=== PATIENT | male | born 1970 | race African-American/Black ===

== ENCOUNTER 2017-12-22 13:16 | Inpatient (IN) | payer SELFPAY ==
[~2017-12-22 13:16] MED LIST: ISOVUE-370 76%-LOCM 1 ML ONE
[2017-12-22 13:50] LABS: Hemoglobin 12.9 g/dL (14.0-18.0); Mean Corpuscular HGB CONC 32.4 g/dL (32.0-36.0); Mean Corpuscular Hemoglobin 25.6 pg (27.0-31.0); Mean Corpuscular Volume 79.1 fL (78.0-98.0); Mean Platelet Volume 8.4 fL (7.4-10.4); Platelet Count 213 thou/uL (130-400); RBC Distribution Width 13.8 % (11.5-14.5); Red Blood Cell (RBC) Count 5.05 mill/uL (4.70-6.10); White Blood Cell (WBC) Count 8.1 thou/uL (4.8-10.8)
[2017-12-22] MEDS ORDERED: Acetaminophen 500 MG TAB ONE (14:04)
[2017-12-22] MEDS ORDERED: cefTRIAXone\\ROCEPHIN 1 GM VIAL ONE (14:04)
[2017-12-22 14:09] LABS: ALT (SGPT) 35 U/L (8-55); AST (SGOT) 25 U/L (5-34); Albumin 4.2 g/dL (3.5-5.0); Alkaline Phosphatase 110 U/L (40-150); Anion Gap 14 mmol/L (10-20); BUN (Urea Nitrogen) 12 mg/dL (8.9-20.6); Bilirubin, Total 0.7 mg/dL (0.2-1.2); Calc. Creatinine Clearance 0 mL/min (70-130); Calcium 9.1 mg/dL (7.8-10.44); Carbon Dioxide 27 mmol/L (22-29); Chloride 100 mmol/L (98-107); Estimated GFR-MDRD 62; Globulin 3.9 g/dL (2.4-3.5); Glucose 149 mg/dL (70-105); Potassium 3.7 mmol/L (3.5-5.1); Protein, Total 8.1 g/dL (6.0-8.3); Sodium 137 mmol/L (136-145)
[2017-12-22 14:19] LABS: INR-International Normal Ratio 1.1; PTT 28.9 SEC (22.9-36.1); Prothrombin Time 13.9 SEC (12.0-14.7)
[2017-12-22 14:23] LABS: Band 5 % (5-11); Eosinophils 1 % (0-10); Lymphocytes 7 % (21-51); MDiff Complete? YES; Monocytes 7 % (0-10); Neutrophil 80 % (42-75); PLT Morphology Comment Appears Adequate; Polychromasia SLIGHT = 2-3 cells (100X) (0-2/hpf)
[2017-12-22] MEDS ORDERED: Azithromycin 500 MG VIAL ONE (14:24)
[2017-12-22 14:43] LABS: CKMB 1.5 ng/mL (0-6.6); Troponin I 0.024 ng/mL (< 0.028)
[2017-12-22] MEDS ORDERED: Ibuprofen 800 MG TAB ONE (15:09)
--- NOTE | 2017-12-22 15:33 | RAD ---
PORTABLE AP CHEST X-RAY 12/22/17 HISTORY: Shortness of breath. COMPARISON: 01/18/17. FINDINGS: Dual lead left subclavian cardiac pacemaking device remains in place. Cardiac silhouette is magnified by projection but does appear enlarged. Pulmonary vasculature is magnified by projection. There is s uboptimal evaluation left lung base due to portable technique and overlying soft tissue density as we ll as mild enlargement of the cardiac silhouette. Atelectasis versus infiltrate left lung base could not be entirely excluded. Lungs are otherwise clear. IMPRESSION: 1. Suboptimal evaluation left lung base, but there is otherwise no acute cardiopulmonary process. 2. Mild cardiomegaly. POS: [facility]
--- NOTE | 2017-12-22 15:59 | CT ---
CT ANGIOGRAM THORAX WITH IV CONTRAST AND 3D RECONSTRUCTIONS: 12/22/2017 HISTORY: Shortness of breath. Cough for three months. COMPARISON: 05/10/2016 FINDINGS: No filling defects are seen in the central or segmental pulmonary arteries to suggest a pulmonary emb olus. Subsegmental pulmonary arteries are less well opacified but are probably within normal limits as well. The thoracic aorta is normal in caliber without evidence of an aortic dissection. Minimal atheroscle rotic plaque is seen in the distal thoracic aorta. There are ground glass opacities seen within the left lower lobe and, to a lesser extent, at the late ral aspect of the left upper lobe, which may be related to an infectious process. The right lung is clear. There is no pleural effusion present. Nonspecific, nonenlarged mediastinal and hilar lymph nodes are seen. The upper abdomen demonstrates diminished attenuation of the liver, suggesting fatty infiltration. A dual-lead left subclavian cardiac pacemaker device is noted in place. IMPRESSION: 1. Ground glass opacities left upper and lower lobes, overall nonspecific. Given asymmetry and appe arance, findings may be related to an infectious process. 2. No CT evidence of a pulmonary embolus. 3. Fatty infiltration of the liver. POS: [facility]
--- NOTE | 2017-12-22 16:40 | PDOC.FM ---
- Subjective Subjective: This is a 47 yo male with a PMH of previous NV, Pacemaker in 2014, HTN, HLD, PE - Objective MAR Reviewed: Yes Result Diagrams: 12/22/17 13:37 12/22/17 13:37
[2017-12-22 17:57] LABS: Troponin I 0.034 ng/mL (< 0.028)
[2017-12-22] MEDS ORDERED: Ondansetron ODT 4 MG TAB SL PRN (18:08)
[2017-12-22] MEDS ORDERED: Ondansetron HCl/PF 4 MG/2 ML Vial IVP PRN (18:08)
[2017-12-22] MEDS ORDERED: Acetaminophen 325 MG TAB PO PRN (18:12)
[2017-12-22] MEDS ORDERED: Ondansetron ODT 4 MG TAB PO PRN (18:17)
--- NOTE | 2017-12-22 19:08 | PDOC.FPRHP ---
- History of Present Illness Chief Complaint: SOB History of Present Illness: This is a 47 yo AA M with a PMH of CA, PE, HTN, HLD, sleep apnea, heart failure , and poor compliance who presents to the ER with a CC of worsening SOB. He states that he has had a cough for about a month and has had gradual increase in SOB during that month. He state that in the last week he fell off his horse and states that he was sore after that. After his fall he started having increased SOB with a productive cough. He also states that he started having chest pain during this week. HE denies nausea, vomiting, or diarrhea. ED Course: Pt. received albuterol, rocephin, and azithromycin in the ED - Allergies/Adverse Reactions Allergies Allergy/AdvReac Type Severity Reaction Status Date / Time No Known Allergies Allergy Verified 12/22/17 20:08 - Home Medications Medication Instructions Recorded Confirmed Type No Known [No Known] 12/22/17 12/22/17 History - History PMHx:CA, HTN, HLD, Sleep apnea, heart failur, PSHx: pacemaker in 2013 FHx: Social: - Review of Systems General: reports: fever/chills. denies: weight/appetite/sleep changes Eyes: denies: eye pain, vision changes ENT: denies: nasal congestion, rhinorrhea Respiratory: reports: cough, shortness of breath Cardiovascular: reports: chest pain (with breating), edema (1+ pitting edema to midcalf). denies: palpitation Gastrointestinal: denies: nausea, vomiting, diarrhea, constipation Genitourinary: denies: incontinence, dysuria Skin: denies: rashes, lesions Musculoskeletal: reports: pain, stiffness Neurological: denies: numbness, weakness Psychological: denies: anxiety, depression - Vital signs BP: [174/101] HR: [113] RR: [28] Tmax: [103.0] Pox: [91]% on [RA] Wt: [144.24 Kg] - Physical Exam Constitutional: NAD, awake, alert and oriented, well developed -Constitutional: Pt. was sitting up watching tv, asked about when he could eat HEENT: normocephalic and atraumatic, PERRLA, EOMI Neck: supple, FROM, trachea midline Chest: no-tender to palpation, no lesions Heart: RRR, normal S1/S2 -Lungs: Pt. has end expiratory wheezing diffusely. Pt. had crackles at bases Abdomen: soft, non-tender Musculoskeletal: normal structure, ROM grossly normal Neurological: CN II-XII intact, normal sensation Skin: no rash/lesions, good turgor Heme/Lymphatic: no unusual bruising or bleeding Psychiatric: normal mood and affect, good judgment and insight, intact recent and remote memory FMR H&P: Results - Labs Result Diagrams: 12/22/17 13:37 12/22/17 13:37 Lab results: WBC 8.1 thou/uL (4.8-10.8) 12/22/17 13:37 Hgb 12.9 g/dL (14.0-18.0) L 12/22/17 13:37 Hct 39.9 % (42.0-52.0) L 12/22/17 13:37 MCV 79.1 fL (78.0-98.0) 12/22/17 13:37 Plt Count 213 thou/uL (130-400) 12/22/17 13:37 Band Neuts % (Manual) 5 % (5-11) 12/22/17 13:37 Sodium 137 mmol/L (136-145) 12/22/17 13:37 Potassium 3.7 mmol/L (3.5-5.1) 12/22/17 13:37 Chloride 100 mmol/L (98-107) 12/22/17 13:37 Carbon Dioxide 27 mmol/L (22-29) 12/22/17 13:37 BUN 12 mg/dL (8.9-20.6) 12/22/17 13:37 Creatinine 1.47 mg/dL (0.6-1.3) H 12/22/17 13:37 Glucose 149 mg/dL (70-105) H 12/22/17 13:37 Lactic Acid 2.0 mmol/L (0.5-2.2) 12/22/17 13:37 Calcium 9.1 mg/dL (7.8-10.44) 12/22/17 13:37 Total Bilirubin 0.7 mg/dL (0.2-1.2) 12/22/17 13:37 AST 25 U/L (5-34) 12/22/17 13:37 ALT 35 U/L (8-55) 12/22/17 13:37 Alkaline Phosphatase 110 U/L (40-150) 12/22/17 13:37 CK-MB (CK-2) 1.5 ng/mL (0-6.6) 12/22/17 13:37 Serum Total Protein 8.1 g/dL (6.0-8.3) 12/22/17 13:37 Albumin 4.2 g/dL (3.5-5.0) 12/22/17 13:37 - Radiology Interpretation Chest x-ray Status: report reviewed by me (No acute cardiopulmonary process) Other Status: report reviewed by me (CTA of lungs: ground glass opacities in left upper and lower lobes, no pulmonary embolus, fatty infiltration of liver) FMR H&P: A/P - Problem List (1) Community acquired pneumonia Current Visit: Yes Status: Acute Code(s): J18.9 - PNEUMONIA, UNSPECIFIED ORGANISM (2) Coronary artery disease with history of myocardial infarction without history of CABG Current Visit: Yes Status: Acute Code(s): I25.10 - ATHSCL HEART DISEASE OF [place] CORONARY ARTERY W/O ANG PCTRS; I25.2 - OLD MYOCARDIAL INFARCTION (3) HLD (hyperlipidemia) Current Visit: No Status: Chronic Code(s): E78.5 - HYPERLIPIDEMIA, UNSPECIFIED Qualifiers: Hyperlipidemia type: unspecified Qualified Code(s): E78.5 - Hyperlipidemia , unspecified (4) Hypertension Current Visit: No Status: Chronic Code(s): I10 - ESSENTIAL (PRIMARY) HYPERTENSION Qualifiers: Hypertension type: essential hypertension Qualified Code(s): I10 - Essential (primary) hypertension (5) OVIDIO (obstructive sleep apnea) Current Visit: No Status: Chronic Code(s): G47.33 - OBSTRUCTIVE SLEEP APNEA (ADULT) (PEDIATRIC) - Plan This is a 47 yo male with a PMH CAD with [place], pulmonary embolus, HTN, HLD, heart failure, sleep apnea Community acquired pneumonia -Azithromycin -Rocephin -Duonebs -Watch for changes in respiratory changes CAD with CA -Monitor for vital sign changes -Takes no home meds Pulmonary embolus -DVT prophylaxis -monitor for changes in HLD -takes no home meds -Start on statin prior to discharge HTN -Takes no home meds -monitor BP changes -Make recommendation for BP med prior to discharge Obstructive sleep apnea -offer CPAP at night, pt. has refused in past Code: FULL Family: friend at bedside Prophylaxis: lovenox 40 Disposition: DC in 2 days FMR H&P: Upper Level - Pertinent history 47AAM p/w SOB and productive cough. He states the SOB is a chronic issue that has been worsening for months. However, in the last week it has acutely worsened along with the development of the cough productive of clear/green sputum. He has a significant PMH and is non compliant with medications and medical advice. He endorses a general malaise but denies any n/v/d, abdominal pain, or headache. He does not use supplemental oxygen at home, but has severe OVIDIO that requires CPAP. - Pertinent findings BP: [174/101] HR: [113] RR: [28] Tmax: [103.0] Pox: [91]% on [RA] Wt: [144.24 Kg] Gen: A&Ox3, no acute distress CV: RRR, no murmurs Pulm: left sided crackles and rhonchi Abd: soft; non tender to palpation; no distention Neuro: CNII-XII intact CXR: consistent with Lsided PNA CTA chest: negative for PE LA: 2.0 - Plan Date/Time: 12/22/171907 1. Community acquired pneumonia: continue azithromycin and rocephin. Duonebs PRN. NS @ 150 2/2 sepsis criteria on admission. SMART-REMODELER of 3 and CURB-65 of 1 making him a very low risk patient. LA normal. Admit tele and monitor overnight. 2. Hx of Pulmonary embolus: noncompliant with anticoagulation. Continue ASA 3. Severe OVIDIO: CPAP while in hospital 4. Sick Sinus Syndrome s/p AICD: monitor on tele 5. HLD: takes no home meds but will start on statin prior to discharge 6. HTN: takes no home meds. Monitor overnight with discharge with recs I, Johnathan Conrad, have evaluated this patient and agree with findings/plan as outlined by validation intern resident. Pertinent changes/additions are listed here. Attending Addendum - Attending Addendum Date/Time: 12/22/172222 I personally evaluated the patient at 1850 and discussed the management with Dr. Lindo/[place] I agree with the History, Examination, Assessment and Plan documented above with any addition or exceptions noted below. 47 yo BM with PMH of non-compliance, HTN, HLD, OVIDIO, CA, Stage II CKD, Morbid Obesity who presents with productive cough of green sputum, fever to 103, and dyspnea over the past week. In ER found to have T 103, HR 113, R 28, O2 91% RA At the time I saw him he was denying dyspnea and felt better. Gen: A&O x 3, nad CV: normal s1/s2 no murmurs Lungs: decrease bs right base, crackles/rhonchi Left base Abd: obese, nt/nd Ext: trace edema Labs and imaging reports reviewed. 1) CAP-CT scan shows ground glass appearance- Will treat with Rocephin/ Azithromycin, nebs, O2 as needed. No sign of PE or fluid overload. 2) Severe OVIDIO- CPAP at night. Will try to get home CPAP set up. 3) HTN- uncontrolled- patient has been off meds for >12 months. Will start back meds slowly 4) CKD stage II- stable 5) Noncompliance 6) h/o CA- trend troponins 7) Obesity- discuss weight loss
[2017-12-22] MEDS: Sodium Chloride 0.9% 1,000 ML IV SCH (20:49)
[2017-12-22 21:09] VITALS: BMI 39.7
[2017-12-22] MEDS: Acetaminophen 325 MG TAB PO PRN (22:27)
[2017-12-22 22:46] LABS: CKMB 1.1 ng/mL (0-6.6); Troponin I 0.104 ng/mL (< 0.028)
[2017-12-23] MEDS: Ibuprofen 800 MG TAB PO PRN ×2 (00:12→20:23)
[2017-12-23] MEDS ORDERED: Aspirin 325 mg Enteric Coated Tablet PO SCH (00:15)
[2017-12-23 02:24] LABS: #Lymphocytes 0.4 thou/uL (1.20-3.40); #Monocytes 0.7 thou/uL (0.11-0.59); #Neutrophils 3.6 thou/uL (1.40-6.50); %Eosinophils 0.2 % (0.0-10.0); %Lymphocytes 8.8 % (21.0-51.0); %Monocytes 14.6 % (0.0-10.0); %Neutrophils 76.3 % (42.0-75.0); Hemoglobin 11.3 g/dL (14.0-18.0); Mean Corpuscular Hemoglobin 25.3 pg (27.0-31.0); Mean Corpuscular Volume 78.9 fL (78.0-98.0); Mean Platelet Volume 8.1 fL (7.4-10.4); Platelet Count 171 thou/uL (130-400); RBC Distribution Width 13.9 % (11.5-14.5); Red Blood Cell (RBC) Count 4.48 mill/uL (4.70-6.10); White Blood Cell (WBC) Count 4.7 thou/uL (4.8-10.8)
[2017-12-23 02:48] LABS: Troponin I 0.055 ng/mL (< 0.028)
[2017-12-23 02:58] LABS: ALT (SGPT) 40 U/L (8-55); AST (SGOT) 36 U/L (5-34); Albumin 3.5 g/dL (3.5-5.0); Alkaline Phosphatase 81 U/L (40-150); Anion Gap 12 mmol/L (10-20); BUN (Urea Nitrogen) 14 mg/dL (8.9-20.6); Bilirubin, Total 0.5 mg/dL (0.2-1.2); Calc. Creatinine Clearance 139 mL/min (70-130); Calcium 8.2 mg/dL (7.8-10.44); Carbon Dioxide 24 mmol/L (22-29); Chloride 106 mmol/L (98-107); Estimated GFR-MDRD 69; Globulin 3.3 g/dL (2.4-3.5); Glucose 132 mg/dL (70-105); Potassium 3.4 mmol/L (3.5-5.1); Protein, Total 6.8 g/dL (6.0-8.3); Sodium 139 mmol/L (136-145)
[2017-12-23] MEDS: Sodium Chloride 0.9% 1,000 ML IV SCH (03:34)
--- NOTE | 2017-12-23 05:26 | PDOC.FM ---
- Subjective Subjective: Pt. states he did well overnight. He states that he slept well with the CPAP and would consider using it at home. He states that his breathing is better and that he is not having chest pain. He did state that he had a fever overnight. He denies any nausea, vomiting, diarrhea or constipation. - Objective MAR Reviewed: Yes Vital Signs & Weight: Vital Signs (12 hours) Temp Pulse Resp BP BP BP Pulse Ox 12/23/17 04:07 25 H 12/23/17 02:14 100.4 F H 95 32 H 148/83 H 97 12/23/17 01:11 102.7 F H 108 H 36 H 95 12/22/17 23:51 102.9 F H 111 H 40 H 181/107 H 93 L 12/22/17 23:04 102.9 F H 112 H 22 H 12/22/17 22:50 102.8 F H 115 H 20 164/102 H 88 L 12/22/17 20:28 90 L 12/22/17 20:25 108 H 21 H 90 L 12/22/17 20:05 99.4 F 99 24 H 179/99 H 94 L 12/22/17 19:42 99.4 F 99 24 H Weight Weight 144.378 kg Result Diagrams: 12/23/17 02:12 12/23/17 02:12 <Otto Lindo - Last Filed: 12/23/17 17:00> - Objective Vital Signs & Weight: Vital Signs (12 hours) Temp Pulse Resp BP BP BP Pulse Ox 12/23/17 20:00 101.8 F H 95 24 H 174/100 H 92 L 12/23/17 19:17 98.9 F 93 20 12/23/17 18:15 176/87 H 12/23/17 17:58 187/85 H 12/23/17 15:34 98.9 F 93 20 180/108 H 99 12/23/17 14:57 91 178/93 H 12/23/17 12:26 179/107 H 12/23/17 11:34 98.4 F 96 20 181/103 H 94 L 12/23/17 10:49 95 Weight Weight 144.378 kg I&O: 12/22/17 12/23/17 12/24/17 06:59 06:59 06:59 Intake Total 1844 825 Output Total 175 600 Balance 1669 225 Result Diagrams: 12/23/17 02:12 12/23/17 02:12 <Alina More - Last Filed: 12/23/17 21:58> Phys Exam - Physical Examination Constitutional: NAD HEENT: PERRLA, moist MMs Neck: no nodes, no JVD improved breath sounds. still some end expiratory wheezing at lung bases Cardiovascular: RRR, no significant murmur Gastrointestinal: soft, non-tender, no distention, positive bowel sounds Musculoskeletal: pulses present, edema present (1+ edema) Neurological: normal sensation, moves all 4 limbs Psychiatric: normal affect, A&O x 3 Skin: no rash, cap refill <2 seconds <Otto Lindo - Last Filed: 12/23/17 17:00> Dx/Plan (1) Community acquired pneumonia Code(s): J18.9 - PNEUMONIA, UNSPECIFIED ORGANISM Status: Acute (2) Coronary artery disease with history of myocardial infarction without history of CABG Code(s): I25.10 - ATHSCL HEART DISEASE OF [place] CORONARY ARTERY W/O ANG PCTRS; I25.2 - OLD MYOCARDIAL INFARCTION Status: Acute (3) HLD (hyperlipidemia) Code(s): E78.5 - HYPERLIPIDEMIA, UNSPECIFIED Status: Chronic QualifierTitle: Hyperlipidemia type: unspecified Qualified Code(s): E78.5 - Hyperlipidemia, unspecified (4) Hypertension Code(s): I10 - ESSENTIAL (PRIMARY) HYPERTENSION Status: Chronic QualifierTitle: Hypertension type: essential hypertension Qualified Code( s): I10 - Essential (primary) hypertension (5) OVIDIO (obstructive sleep apnea) Code(s): G47.33 - OBSTRUCTIVE SLEEP APNEA (ADULT) (PEDIATRIC) Status: Chronic - Plan Plan: This is a 47 yo male with a PMH of CAD with [place], PE, HTN, HLD, sleep apnea, noncompliance, obesity CAP -We are treating with Azithromycin and rocephin. Duonebs PRN as needed for wheezing/SOB, we will be watching for changes in respiratory status CAD with hx of [place] -Troponins bumped overnight, likely demand ischemia, they are trending down. Continue iv fluids. Consider starting on metoprolol and simvistatin upon discharge. Hx of pulmonary embolus -Pt. currently does not take any home medication for DVT/thrombus prophylaxis. Pt. is on lovenox prophylaxis HLD -Consider starting simvistatin upon DC HTN -Consider starting metoprolol upon DC Sleep apnea -Pt. does not have home CPAP, will try to get patient set up with sleep study for CPAP CKD II -Stable, creatinine improving Noncompliance -Pt. admits to not taking any medications for his medical conditions. We will provide information regarding his conditions and encourage him to begin taking medications to optimally manage his conditions <Otto Lindo - Last Filed: 12/23/17 17:00> (1) Community acquired pneumonia Code(s): J18.9 - PNEUMONIA, UNSPECIFIED ORGANISM Status: Acute (2) Coronary artery disease with history of myocardial infarction without history of CABG Code(s): I25.10 - ATHSCL HEART DISEASE OF [place] CORONARY ARTERY W/O ANG PCTRS; I25.2 - OLD MYOCARDIAL INFARCTION Status: Acute (3) HLD (hyperlipidemia) Code(s): E78.5 - HYPERLIPIDEMIA, UNSPECIFIED Status: Chronic Qualifiers: Hyperlipidemia type: unspecified Qualified Code(s): E78.5 - Hyperlipidemia , unspecified (4) Hypertension Code(s): I10 - ESSENTIAL (PRIMARY) HYPERTENSION Status: Chronic Qualifiers: Hypertension type: essential hypertension Qualified Code(s): I10 - Essential (primary) hypertension (5) OVIDIO (obstructive sleep apnea) Code(s): G47.33 - OBSTRUCTIVE SLEEP APNEA (ADULT) (PEDIATRIC) Status: Chronic <Alina More - Last Filed: 12/23/17 21:58> Attending Addendum - Attending Addendum Date/Time: 12/23/17 623 I personally evaluated the patient at 0945 am and discussed the management with Dr. Lindo. I agree with the History, Examination, Assessment and Plan documented above with any addition or exceptions noted below. CAP-on Rocephin/Azithro- fever curve improving and patient symptomatically better Uncontrolled HTN- start meds that were discharged at last hospital stay OVIDIO, severe- work with CM tomorrow to set up home CPAP. Indet trops- downtrending and EKG unchanged. Most likely demand ischemia- check ECHO. <Alina More - Last Filed: 12/23/17 21:58>
[2017-12-23] MEDS: Enoxaparin Sodium 40 MG/0.4 ML SYRINGE SC SCH (09:19)
[2017-12-23] MEDS: Acetaminophen 325 MG TAB PO PRN ×2 (09:20→20:23)
[2017-12-23] MEDS ORDERED: Labetalol HCl 100 MG/20 ML VIAL SLOW IVP PRN (13:06)
[2017-12-23] MEDS ORDERED: Hydrochlorothiazide 25 MG TAB PO SCH (13:15)
[2017-12-23] MEDS ORDERED: cefTRIAXone\\ROCEPHIN 1 GM in Sodium Chloride 0.9% 100 ML IVPB SCH (14:00)
[2017-12-23] MEDS ORDERED: Azithromycin 500 MG in Sodium Chloride 0.9% 250 ML 250 ML IVPB SCH (15:00)
[2017-12-23] MEDS: Carvedilol 6.25 MG TAB PO SCH (16:41)
[2017-12-23] MEDS ORDERED: Benzonatate 100 MG CAP PO PRN (18:29)
[2017-12-23] MEDS: Hydrochlorothiazide 25 MG TAB PO SCH (19:30)
[2017-12-24 05:16] LABS: ALT (SGPT) 55 U/L (8-55); AST (SGOT) 42 U/L (5-34); Albumin 3.5 g/dL (3.5-5.0); Alkaline Phosphatase 87 U/L (40-150); Anion Gap 13 mmol/L (10-20); BUN (Urea Nitrogen) 13 mg/dL (8.9-20.6); Bilirubin, Total 0.3 mg/dL (0.2-1.2); Calc. Creatinine Clearance 139 mL/min (70-130); Calcium 8.5 mg/dL (7.8-10.44); Carbon Dioxide 21 mmol/L (22-29); Chloride 106 mmol/L (98-107); Estimated GFR-MDRD 69; Globulin 3.5 g/dL (2.4-3.5); Glucose 128 mg/dL (70-105); Potassium 3.6 mmol/L (3.5-5.1); Sodium 136 mmol/L (136-145)
--- NOTE | 2017-12-24 05:41 | PDOC.FM ---
- Subjective Subjective: Pt. states he did well overnight. His breathing is improving and he is feeling better. He slept some lastnight with the CPAP and felt rested again. Pt. denies any SOB, chest pressure, or abdominal pain. - Objective MAR Reviewed: Yes Vital Signs & Weight: Vital Signs (12 hours) Temp Pulse Resp BP BP BP Pulse Ox 12/24/17 03:29 98.2 F 82 26 H 169/102 H 100 12/23/17 23:05 99.6 F 85 16 163/87 H 96 12/23/17 23:00 94 L 12/23/17 20:00 101.8 F H 95 24 H 174/100 H 92 L 12/23/17 19:17 98.9 F 93 20 12/23/17 18:15 176/87 H 12/23/17 17:58 187/85 H Weight Weight 144.378 kg I&O: 12/22/17 12/23/17 12/24/17 06:59 06:59 06:59 Intake Total 1844 1245 Output Total 175 1075 Balance 1669 170 Result Diagrams: 12/24/17 04:49 12/24/17 04:49 Phys Exam - Physical Examination Constitutional: NAD HEENT: PERRLA, moist MMs Neck: no JVD, full ROM Respiratory: wheezing present (improving, end expiratory in bases, no distress) Cardiovascular: RRR, no significant murmur Gastrointestinal: soft, non-tender, no distention, positive bowel sounds Musculoskeletal: edema present (pitting + 1 ankles) Neurological: normal sensation, moves all 4 limbs Psychiatric: normal affect, A&O x 3 Skin: normal turgor, cap refill <2 seconds Dx/Plan (1) Community acquired pneumonia Code(s): J18.9 - PNEUMONIA, UNSPECIFIED ORGANISM Status: Acute (2) Coronary artery disease with history of myocardial infarction without history of CABG Code(s): I25.10 - ATHSCL HEART DISEASE OF [place] CORONARY ARTERY W/O ANG PCTRS; I25.2 - OLD MYOCARDIAL INFARCTION Status: Acute (3) HLD (hyperlipidemia) Code(s): E78.5 - HYPERLIPIDEMIA, UNSPECIFIED Status: Chronic Qualifiers: Hyperlipidemia type: unspecified Qualified Code(s): E78.5 - Hyperlipidemia , unspecified (4) Hypertension Code(s): I10 - ESSENTIAL (PRIMARY) HYPERTENSION Status: Chronic Qualifiers: Hypertension type: essential hypertension Qualified Code(s): I10 - Essential (primary) hypertension (5) OVIDIO (obstructive sleep apnea) Code(s): G47.33 - OBSTRUCTIVE SLEEP APNEA (ADULT) (PEDIATRIC) Status: Chronic - Plan Plan: This is a 47 yo AA male with a PMH of CAD with [place], PE, HTN, sleep apnea, noncompliance,obesity CAP -We are treating with Azithromycin and rocephin. Duonebs PRN for wheezing and SOB, we will be watching for changes in respiratory status and blood cultures ( NGTD (12/22 1500) Plan to transition to oral levoquin and azithromycin CAD with Hx of [place] -Troponins trended down. Likely elevated due to demand ischemia. Continuing IVF , will start simvastatin Hx of PE -Pt. is currently on lovenox for prophylaxis, no home meds HLD -will start simvastatin HTN -Started on HCTZ 12.5mg and Coreg 6.25mg, will continue to monitor BP Sleep apnea -We will try to set pt. up with sleep study for CPAP upon discharge. Pt. has CPAP for use in hospital CKD II -Stable creatinine Noncompliance -Pt. admits to not taking medication for any conditions. We will provide information regarding conditions and encourage him to take medication to optimally manage his conditions Code: FULL Family: at bedside Prophylaxis: lovenox Disposition: home in 1-2 days
[2017-12-24 06:41] LABS: Eosinophils 2 % (0-10); Hemoglobin 11.6 g/dL (14.0-18.0); Lymphocytes 44 % (21-51); MDiff Complete? YES; Mean Corpuscular HGB CONC 31.5 g/dL (32.0-36.0); Mean Corpuscular Hemoglobin 24.9 pg (27.0-31.0); Mean Corpuscular Volume 79.1 fL (78.0-98.0); Mean Platelet Volume 8.8 fL (7.4-10.4); Monocytes 16 % (0-10); Neutrophil 38 % (42-75); PLT Morphology Comment Appears Adequate; Platelet Count 136 thou/uL (130-400); Red Blood Cell (RBC) Count 4.65 mill/uL (4.70-6.10); White Blood Cell (WBC) Count 2.6 thou/uL (4.8-10.8)
[2017-12-24] MEDS: Carvedilol 6.25 MG TAB PO SCH ×2 (08:25→17:51)
[2017-12-24] MEDS: Enoxaparin Sodium 40 MG/0.4 ML SYRINGE SC SCH (08:25)
[2017-12-24] MEDS: Hydrochlorothiazide 25 MG TAB PO SCH ×2 (08:26→20:29)
--- NOTE | 2017-12-24 13:36 | EKG ---
Test Reason : STAT Blood Pressure : / mmHG Vent. Rate : 109 BPM Atrial Rate : 109 BPM P-R Int : 172 ms QRS Dur : 120 ms QT Int : 356 ms P-R-T Axes : 053 057 073 degrees QTc Int : 479 ms Atrial-sensed ventricular-paced rhythm Abnormal ECG When compared with ECG of 18-JAN-2017 09:06, Previous ECG has undetermined rhythm, needs review Confirmed by SAJI SU, STad ([id number]) on 12/24/2017 1:35:43 PM Referred By: Confirmed By:DR. Edil LENNON MD
[2017-12-24] MEDS: Acetaminophen 325 MG TAB PO PRN (14:30)
--- NOTE | 2017-12-24 14:37 | ADD-PRG ---
DATE OF SERVICE: 12/24/2017 Please add this as an addendum to the note of Dr. Otto Lindo. Mr. Phelps is a 47-year-old man, admitted with community-acquired pneumonia and hypertension. He lo oks and feels much better this morning. We will transition him to p.o. antibiotics and likely discha rge him tomorrow. He is currently afebrile. He is still slightly hypertensive, although overall his blood pressures are improving. CBC shows his white count has dropped to 2600.
--- NOTE | 2017-12-25 06:16 | PDOC.FM ---
- Subjective Subjective: Nurse states that he did not sleep much overnight. Pt. states he was using his cpap to sleep some. Pt. denies SOB, chest pain, or abdominal pain. He denies any headaches or lower extremity pain. Pt states he is ready to leave. - Objective MAR Reviewed: Yes Vital Signs & Weight: Vital Signs (12 hours) Temp Pulse Resp BP BP Pulse Ox 12/25/17 04:00 98.7 F 83 18 175/106 H 97 12/25/17 00:45 172/106 H 12/25/17 00:00 99.4 F 84 20 181/101 H 99 12/24/17 20:30 98.7 F 81 20 95 12/24/17 20:00 98.7 F 81 20 171/103 H 95 Weight Weight 146.692 kg I&O: 12/23/17 12/24/17 12/25/17 06:59 06:59 06:59 Intake Total 1844 1245 350 Output Total 175 1075 1265 Balance 1669 170 -915 Result Diagrams: 12/25/17 05:11 12/25/17 05:11 Phys Exam - Physical Examination Constitutional: NAD (sleeping with cpap) HEENT: PERRLA, moist MMs Neck: no JVD, full ROM improving breath sounds. mild wheezing at bases Cardiovascular: RRR, no significant murmur Gastrointestinal: soft, non-tender, no distention, positive bowel sounds Musculoskeletal: no edema, pulses present Neurological: normal sensation, moves all 4 limbs Psychiatric: normal affect, A&O x 3 Skin: normal turgor, cap refill <2 seconds Dx/Plan (1) Community acquired pneumonia Code(s): J18.9 - PNEUMONIA, UNSPECIFIED ORGANISM Status: Acute (2) Coronary artery disease with history of myocardial infarction without history of CABG Code(s): I25.10 - ATHSCL HEART DISEASE OF [place] CORONARY ARTERY W/O ANG PCTRS; I25.2 - OLD MYOCARDIAL INFARCTION Status: Acute (3) HLD (hyperlipidemia) Code(s): E78.5 - HYPERLIPIDEMIA, UNSPECIFIED Status: Chronic Qualifiers: Hyperlipidemia type: unspecified Qualified Code(s): E78.5 - Hyperlipidemia , unspecified (4) Hypertension Code(s): I10 - ESSENTIAL (PRIMARY) HYPERTENSION Status: Chronic Qualifiers: Hypertension type: essential hypertension Qualified Code(s): I10 - Essential (primary) hypertension (5) OVIDIO (obstructive sleep apnea) Code(s): G47.33 - OBSTRUCTIVE SLEEP APNEA (ADULT) (PEDIATRIC) Status: Chronic - Plan Plan: This is a 47 yo male with a PMH of CAD with [place], PE, HTN, Sleep apnea, noncompliance, obesity CAP -Switched to levoquin IV, will convert to PO today. Blood cultures negative CAD -Troponins trended down, likely 2/2 demand ischemia, Will start on simvastatin HLD -Starting simvastatin HTN -HCTZ 12.5 and Coreg 12, will continue monitoring Sleep apnea -Will try to get out patient CPAP, case management consulted CKDII -Stable creatinine Noncompliance -Encouraged pt. to take medications to optimally manage his conditions Code: FULL Family: at bedside Prophylaxis: lovenox Disposition: home today if clinically improved.
[2017-12-25 06:27] LABS: #Eosinphils 0.1 thou/uL (0.0-0.7); #Lymphocytes 1.6 thou/uL (1.20-3.40); #Monocytes 0.5 thou/uL (0.11-0.59); #Neutrophils 1.8 thou/uL (1.40-6.50); %Eosinophils 1.3 % (0.0-10.0); %Lymphocytes 41.4 % (21.0-51.0); %Monocytes 12.4 % (0.0-10.0); %Neutrophils 44.9 % (42.0-75.0); Hemoglobin 11.9 g/dL (14.0-18.0); Mean Corpuscular HGB CONC 32.5 g/dL (32.0-36.0); Mean Corpuscular Hemoglobin 25.4 pg (27.0-31.0); Mean Platelet Volume 9.6 fL (7.4-10.4); Platelet Count 166 thou/uL (130-400); RBC Distribution Width 13.6 % (11.5-14.5); White Blood Cell (WBC) Count 3.9 thou/uL (4.8-10.8)
[2017-12-25 06:45] LABS: ALT (SGPT) 60 U/L (8-55); AST (SGOT) 41 U/L (5-34); Albumin 3.7 g/dL (3.5-5.0); Alkaline Phosphatase 85 U/L (40-150); Anion Gap 11 mmol/L (10-20); BUN (Urea Nitrogen) 13 mg/dL (8.9-20.6); Bilirubin, Total 0.5 mg/dL (0.2-1.2); Calc. Creatinine Clearance 155 mL/min (70-130); Calcium 9.2 mg/dL (7.8-10.44); Carbon Dioxide 28 mmol/L (22-29); Chloride 101 mmol/L (98-107); Estimated GFR-MDRD 79; Globulin 3.8 g/dL (2.4-3.5); Glucose 111 mg/dL (70-105); Potassium 3.4 mmol/L (3.5-5.1); Protein, Total 7.5 g/dL (6.0-8.3); Sodium 137 mmol/L (136-145)
[2017-12-25] MEDS ORDERED: Potassium Chloride 20 MEQ TAB PO SCH (08:30)
[2017-12-25] MEDS: Hydrochlorothiazide 25 MG TAB PO SCH (08:59)
[2017-12-25] MEDS: Enoxaparin Sodium 40 MG/0.4 ML SYRINGE SC SCH (09:00)
[2017-12-25] MEDS: Carvedilol 6.25 MG TAB PO SCH (09:00)
[2017-12-25] MEDS ORDERED: Amlodipine 5 MG TAB PO SCH (09:00)
[2017-12-25 12:06] VITALS: BP 165/101; TEMP 98.8
--- NOTE | 2017-12-25 12:08 | ADD-PRG ---
DATE OF SERVICE: 12/25/2017 Mr. Phelps continues to feel look and feel much better. He has no cough, no shortness of breath. H e is afebrile. Blood pressure is still elevated, but we can continue to manage this as an outpatient . He will be discharged on p.o. Levaquin to follow up with his PCP in 1-2 weeks.
--- NOTE | 2017-12-26 05:33 | DIS-2 ---
DATE OF ADMISSION: 12/22/2017 DATE OF DISCHARGE: 12/25/2017 RESIDENT: Otto Lindo D.O. ADMITTING ATTENDING: Alina More M.D. DISCHARGE ATTENDING: Dino Motta M.D. CONSULTATIONS: None. PROCEDURES: Chest x-ray showed mild cardiomegaly. CT chest and thorax showed ground glass opacities over the left upper and lower lobes indicating infectious process, no evidence of pulmonary embolism , fatty infiltration of liver, echocardiogram showed an ejection fraction of 20%-25% with diastolic d ysfunction. PRIMARY DIAGNOSES: Community-acquired pneumonia, sepsis. SECONDARY DIAGNOSES: Coronary artery disease, hyperlipidemia, hypertension, obstructive sleep apnea, noncompliance. DISCHARGE MEDICATIONS: Norvasc 5 mg, Coreg 12.5 mg b.i.d., hydrochlorothiazide 12.5 mg b.i.d., Levaq uin 750 mg p.o. daily. DISCONTINUED MEDICATIONS: None. HISTORY OF PRESENT ILLNESS AND HOSPITAL COURSE: This is a 47-year-old male who came into the ER with a chief complaint of shortness of breath that has been going on for 3 months and progressed in the l ast week. He states that he had productive cough in the last week. Also states that he fell off a h orse earlier that week. In the ER, the patient's blood pressure is 174/101. Heart rate was 113, res pirations 28, temperature 103.0, pulse ox 91 on room air. The patient had positive troponins up to t he 0.1 level and then troponins trended down on subsequent days. The patient was put on azithromycin and ceftriaxone during the first 2 days of his stay and put on p.o. Levaquin on the last 2 days and discharged on that medication. DISPOSITION: Stable. DISCHARGE INSTRUCTIONS: 1. Location: Home. 2. Diet: Heart healthy. 3. Activity: As tolerated. 4. Followup: Follow up with primary care physician in 1-2 weeks.
== END 2017-12-25 12:08 | disposition home or self-care (01) | DRG 871 ==
LOC: ERS 13:16 → T4-A 18:05 → 2SW 19:45
PROVIDERS: ADMIT Family Medicine; ATTEND Family Medicine
DX: A41.9 Sepsis, unspecified organism (principal); J18.9 Pneumonia, unspecified organism; I13.0 Hypertensive heart and chronic kidney disease with heart failure and stage 1 through stage 4 chronic kidney disease, or unspecified chronic kidney disease; I50.9 Heart failure, unspecified; E78.5 Hyperlipidemia, unspecified; I25.2 Old myocardial infarction; I25.10 Atherosclerotic heart disease of native coronary artery without angina pectoris; G47.33 Obstructive sleep apnea (adult) (pediatric); I49.5 Sick sinus syndrome; N18.2 Chronic kidney disease, stage 2 (mild); E66.01 Morbid (severe) obesity due to excess calories; Z68.39 Body mass index [BMI] 39.0-39.9, adult; Z91.14 Patient's other noncompliance with medication regimen; Z86.711 Personal history of pulmonary embolism; Z95.0 Presence of cardiac pacemaker; Z83.3 Family history of diabetes mellitus; Z82.49 Family history of ischemic heart disease and other diseases of the circulatory system
CPT/HCPCS: 36415; 71045; 71275; 80053; 82553; 83605; 83880; 84484; 85025; 85610; 85730; 87040; 93005; 93010; 93306; 94640; 94660; 96361; 96365; 96367; A4216; J0456; J0696; J1650; J7050; J7620

== ENCOUNTER 2018-05-12 16:49 | Emergency (ER) | payer OTHER, SELFPAY ==
[2018-05-12 18:19] LABS: #Eosinphils 0.1 thou/uL (0.0-0.7); #Lymphocytes 2.3 thou/uL (1.20-3.40); #Monocytes 0.7 thou/uL (0.11-0.59); #Neutrophils 4.8 thou/uL (1.40-6.50); %Basophils 0.6 % (0.0-1.0); %Eosinophils 0.8 % (0.0-10.0); %Lymphocytes 28.8 % (21.0-51.0); %Monocytes 8.4 % (0.0-10.0); %Neutrophils 61.4 % (42.0-75.0); Hemoglobin 12.9 g/dL (14.0-18.0); Mean Corpuscular HGB CONC 32.2 g/dL (32.0-36.0); Mean Corpuscular Hemoglobin 25.6 pg (27.0-31.0); Mean Corpuscular Volume 79.6 fL (78.0-98.0); Mean Platelet Volume 8.6 fL (7.4-10.4); Platelet Count 251 thou/uL (130-400); RBC Distribution Width 13.9 % (11.5-14.5); Red Blood Cell (RBC) Count 5.04 mill/uL (4.70-6.10); White Blood Cell (WBC) Count 7.9 thou/uL (4.8-10.8)
[2018-05-12 18:23] LABS: PTT 26.7 SEC (22.9-36.1); Prothrombin Time 13.6 SEC (12.0-14.7)
--- NOTE | 2018-05-12 18:30 | CT ---
CT HEAD WITHOUT CONTRAST: Technique: Multiple contiguous axial images were obtained through the head without IV enhancement. Indications: Headache. Hypertension. Dizziness. Comparison: 02-03-15 FINDINGS: The ventricles have normal size and position. No evidence of hemorrhage or edema. No evidence of luther ical infarct or mass. There is a focal lucency seen in the head of the caudate on the left which is a new finding when comp ared to the prior study. This measures approximately 4-5 mm. This may represent a tiny lacunar infarc t in the head of the caudate. Suggest elective follow up MRI to further evaluate. No other interval change. IMPRESSION: 1. New focal lucency in the head of the caudate on the left when compared to the prior study of 2014. Possible old lacunar infarct. There is no evidence of acute intracranial process. Recommend this cau date finding to be further evaluated with elective MRI exam. POS: PERFECTO
[2018-05-12 18:38] LABS: ALT (SGPT) 25 U/L (8-55); AST (SGOT) 20 U/L (5-34); Albumin 4.4 g/dL (3.5-5.0); Alkaline Phosphatase 112 U/L (40-150); Anion Gap 14 mmol/L (10-20); BUN (Urea Nitrogen) 19 mg/dL (8.9-20.6); Bilirubin, Total 0.4 mg/dL (0.2-1.2); CK (CPK) 492 U/L (30-200); Calc. Creatinine Clearance 0 mL/min (70-130); Calcium 10.2 mg/dL (7.8-10.44); Carbon Dioxide 31 mmol/L (22-29); Chloride 95 mmol/L (98-107); Estimated GFR-MDRD 59; Globulin 4.7 g/dL (2.4-3.5); Glucose 215 mg/dL (70-105); Lipase 41 U/L (8-78); Potassium 3.3 mmol/L (3.5-5.1); Protein, Total 9.1 g/dL (6.0-8.3); Sodium 137 mmol/L (136-145)
[2018-05-12 18:42] LABS: CKMB 2.3 ng/mL (0-6.6)
== END 2018-05-12 19:51 | disposition home or self-care (01) ==
LOC: ERS 16:49
DX: I10 Essential (primary) hypertension (principal); I63.81 Other cerebral infarction due to occlusion or stenosis of small artery; I25.2 Old myocardial infarction; G47.30 Sleep apnea, unspecified; I50.9 Heart failure, unspecified; E78.00 Pure hypercholesterolemia, unspecified; Z86.711 Personal history of pulmonary embolism
CPT/HCPCS: 36415; 70450; 80053; 82550; 82553; 83690; 85025; 85610; 85730

== ENCOUNTER 2018-06-22 19:15 | Inpatient (IN) | payer SELFPAY ==
[2018-06-22 19:55] LABS: #Basophils 0.1 thou/uL (0.0-0.2); #Monocytes 0.5 thou/uL (0.11-0.59); #Neutrophils 5.4 thou/uL (1.40-6.50); %Basophils 0.6 % (0.0-1.0); %Eosinophils 0.5 % (0.0-10.0); %Lymphocytes 33.1 % (21.0-51.0); %Monocytes 5.7 % (0.0-10.0); Hemoglobin 13.8 g/dL (14.0-18.0); Mean Corpuscular HGB CONC 32.2 g/dL (32.0-36.0); Mean Corpuscular Hemoglobin 25.8 pg (27.0-31.0); Mean Corpuscular Volume 80.1 fL (78.0-98.0); Mean Platelet Volume 9.9 fL (7.4-10.4); Platelet Count 217 thou/uL (130-400); RBC Distribution Width 13.2 % (11.5-14.5); Red Blood Cell (RBC) Count 5.35 mill/uL (4.70-6.10)
[2018-06-22 20:16] LABS: ALT (SGPT) 33 U/L (8-55); AST (SGOT) 24 U/L (5-34); Albumin 4.5 g/dL (3.5-5.0); Alkaline Phosphatase 180 U/L (40-150); Anion Gap 17 mmol/L (10-20); BUN (Urea Nitrogen) 22 mg/dL (8.9-20.6); Bilirubin, Total 0.5 mg/dL (0.2-1.2); Calc. Creatinine Clearance 0 mL/min (70-130); Calcium 10.2 mg/dL (7.8-10.44); Carbon Dioxide 30 mmol/L (22-29); Chloride 87 mmol/L (98-107); Estimated GFR-MDRD 35; Globulin 4.7 g/dL (2.4-3.5); Potassium 3.7 mmol/L (3.5-5.1); Protein, Total 9.2 g/dL (6.0-8.3); Sodium 130 mmol/L (136-145)
[2018-06-22 20:40] LABS: Glucose 699 mg/dL (70-105)
[2018-06-22 20:47] LABS: Bilirubin Negative (Negative); Blood, Urine Trace (Negative); Glucose, Urine (Dipstick) >=1000 mg/dL (Negative); Leukocyte Negative (Negative); Nitrite Negative (Negative); Protein, Urine (Dipstick) Negative (Neg-Trace); Urobilinogen 0.2 mg/dL (0.2-1.0); pH, Urine 6.5 (5.0-9.0)
[2018-06-22 20:48] LABS: Clarity Clear (Clear)
[2018-06-22 20:50] LABS: Specific Gravity, Urine 1.028 (1.002-1.036)
[2018-06-22 20:51] LABS: Other Microscopic Description Less than 2 mL rec'd
[2018-06-22 20:55] LABS: Bacteria/HPF None Seen HPF (None Seen); Hyaline Casts/LPF NONE SEEN LPF (0-3 Hyaline); RBC/HPF 0-3 HPF (0-3); Squamous Epithelial 0-3 HPF (0-3); WBC/HPF 0-3 HPF (0-3)
[2018-06-22] MEDS ORDERED: Insulin Regular 300 UNITS/3 ML VIAL ONE (22:27)
[2018-06-22 23:42] LABS: PTT 25.9 SEC (22.9-36.1)
[2018-06-23] MEDS ORDERED: Dextrose 50% Abboject 50 ML SYRINGE SLOW IVP PRN (00:12)
[2018-06-23] MEDS ORDERED: Dextrose 5% in Water 1,000 ML IV PRN (00:12)
[2018-06-23] MEDS ORDERED: Insulin Regular 300 UNITS/3 ML VIAL ONE ×2 (03:59→09:17)
[2018-06-23 04:15] LABS: Hemoglobin A1c 17.1 % (4.0-6.0)
[2018-06-23 04:19] LABS: Anion Gap 18 mmol/L (10-20); BUN (Urea Nitrogen) 20 mg/dL (8.9-20.6); Calc. Creatinine Clearance 0 mL/min (70-130); Calcium 9.8 mg/dL (7.8-10.44); Carbon Dioxide 27 mmol/L (22-29); Chloride 94 mmol/L (98-107); Estimated GFR-MDRD 47; Glucose 451 mg/dL (70-105); Potassium 4.1 mmol/L (3.5-5.1); Sodium 135 mmol/L (136-145)
[2018-06-23] MEDS ORDERED: Insulin Glargine 10 UNITS in Pre-Filled Syringe SC SCH (05:45)
[2018-06-23] MEDS ORDERED: Acetaminophen 325 MG TAB PO PRN (06:50)
[2018-06-23] MEDS ORDERED: Calcium Carbonate 500 MG ChewTAB PO PRN (06:50)
[2018-06-23] MEDS ORDERED: Nitroglycerin 0.4 MG TAB (25 Tab Bottle) PO PRN (06:50)
[2018-06-23] MEDS ORDERED: Eucerin (Mineral Oil/Petrolatum,White) 30 gm Jar TOP PRN (06:52)
[2018-06-23] MEDS ORDERED: hydrALAZINE 20 MG/ML VIAL SLOW IVP PRN (06:52)
[2018-06-23] MEDS ORDERED: Polyethylene Glycol 3350 17 GM Packet PO PRN (06:52)
[2018-06-23] MEDS ORDERED: glipiZIDE 5 MG TAB PO SCH (07:30)
[2018-06-23] MEDS ORDERED: Aspirin Chewable 81 MG TAB ONE (08:37)
[2018-06-23] MEDS ORDERED: Famotidine 20 MG TAB ONE (08:50)
[2018-06-23] MEDS ORDERED: Enoxaparin Sodium 30 MG/0.3 ML SYRINGE ONE (08:50)
[2018-06-23] MEDS ORDERED: HumaLOG 300 UNITS/3 ML VIAL ONE (09:15)
[2018-06-23] MEDS: Insulin Regular 300 UNITS/3 ML VIAL SC PRN ×3 (09:19→21:04)
[2018-06-23] MEDS: Enoxaparin Sodium 30 MG/0.3 ML SYRINGE SC SCH (09:23)
[2018-06-23] MEDS: Famotidine 20 MG TAB PO SCH ×2 (09:24→20:58)
[2018-06-23] MEDS: Aspirin 81 mg Enteric Coated Tablet PO SCH (09:24)
[2018-06-23] MEDS: Sodium Chloride 0.9% 1,000 ML IV SCH ×3 (11:20→20:56)
[2018-06-23] MEDS: Insulin Glargine 10 UNITS in Pre-Filled Syringe SC SCH ×2 (11:21→21:06)
[2018-06-23] MEDS: Carvedilol 3.125 MG TAB PO SCH ×2 (11:44→18:28)
[2018-06-23] MEDS: glipiZIDE 5 MG TAB PO SCH (11:45)
[2018-06-23] MEDS ORDERED: Ondansetron PF 4 MG/2 ML Vial SLOW IVP PRN (15:54)
[2018-06-24] MEDS: Insulin Regular 300 UNITS/3 ML VIAL SC PRN ×6 (02:27→21:30)
--- NOTE | 2018-06-24 07:11 | HP ---
PRIMARY CARE PHYSICIAN: [facility]. CHIEF COMPLAINT: Elevated blood sugar. HISTORY OF PRESENT ILLNESS: The patient is a 48-year-old male with hypertension, hyperlipidemia, coronary artery disease, and congestive heart failure, who presented to the emergency room with above complaints. Over the last few days, the patient has not been feeling well. He has been feeling generally weak and fatigued. Most of the time he develops nausea along with lightheadedness. He also reports blurring of vision, diarrhea, as well as increased urination. He has been noncompliant with diabetic medications. Last month, he received a prescription at the [facility] for metformin; however, he discontinued taking it. His blood sugar at home was over 500, for which he presented to the emergency room. He had mild discomfort in the left upper quadrant that is more or less resolved. No fevers or chills reported. He denies any focal neurologic deficit. In the emergency room, initial vital signs showed temperature 97.8, respirations 20, pulse rate of 74 with a blood pressure of 134/94, O2 saturation 94% on room air. His EKG showed paced rhythm. His blood sugar was 699 with creatinine 2.40, BUN 22 with sodium of 130. He received IV fluids with short-acting insulin in the emergency room. PAST MEDICAL HISTORY: 1. Hypertension. 2. Diabetes mellitus, type 2. 3. Coronary artery disease. 4. Obstructive sleep apnea, currently does not have CPAP. 5. Hyperlipidemia. 6. Chronic systolic heart failure, ejection fraction 20% to 25% with diastolic dysfunction. 7. Sick sinus syndrome, status post pacemaker. 8. History of pulmonary embolism in 2015. PAST SURGICAL HISTORY: Pacemaker placement. ALLERGIES: NO KNOWN DRUG ALLERGIES. CURRENT HOME MEDICATIONS: The patient has been noncompliant and is unable to recall any of his home medications. SOCIAL HISTORY: The patient currently lives at home with his family. He is . No current use of smoking, alcohol, or drug use reported. FAMILY HISTORY: Heart disease runs in his family. REVIEW OF SYSTEMS: All other review of systems was reviewed and found negative. PHYSICAL EXAMINATION: VITAL SIGNS: Temperature 97.8, respirations 20, pulse 74, blood pressure 134/94 with O2 saturation of 94% on room air. GENERAL: A 48-year-old male, in no apparent distress. Vision improving up with IV fluids. HEENT: Head, atraumatic and normocephalic. Sclerae are anicteric. Dry mucous membrane. No oral lesion. NECK: Supple. No JVD appreciated. No carotid bruit. LUNGS: Clear to auscultation bilaterally. No wheezing, rales, or rhonchi. HEART: S1 and S2 present. Regular rate and rhythm. 2/6 systolic murmur over the mitral area. ABDOMEN: Soft and obese. Bowel sounds are present. EXTREMITIES: Trace edema in bilateral lower extremity. No calf tenderness. SKIN: Warm and dry. LYMPH NODE: No palpable lymph nodes in the neck. NEUROLOGIC: Grossly nonfocal. Moves all 4 extremities. PSYCHIATRY: Alert, awake, and oriented x3. SKIN: Warm and dry. LYMPH NODES: No palpable lymph nodes in the neck. LABORATORY FINDINGS: WBC 9.0, hemoglobin 13.8, hematocrit 42.8, and platelet of 217. PT, INR, and PTT normal range. Creatinine 2.4 with BUN 22, bicarbonate 30, ketones 0.43. Urinalysis was negative for wbc, bacteria. DIAGNOSTIC DATA: Echocardiogram in November 2017 showed ejection fraction of 20% to 25% with diastolic dysfunction. CT angiogram of the chest in November 2017 was negative for pulmonary embolism. EKG by my review showed paced rhythm. IMPRESSION: 1. Acute kidney injury on chronic kidney disease stage 2 secondary to uncontrolled diabetes. 2. Uncontrolled diabetes. A1c 17.1. 3. Hyponatremia. 4. Dehydration/contraction alkalosis. 5. Medication noncompliance. 6. Chronic systolic and diastolic heart failure appears to be compensated. 7. Hypertension. 8. Lisinopril allergy. 9. Mild chronic anemia. 10. Sick sinus syndrome, status post pacemaker. 11. Hyperlipidemia. 12. Obstructive sleep apnea, currently not on CPAP. PLAN: The patient will be monitored on the medical floor. We will start him on long-acting insulin along with sliding scale. Insulin teaching. We will consult dietitian. We will start him on low-dose Coreg. Please note that the patient is allergic to JULIEN inhibitor. Gentle IV hydration due to history of congestive heart failure. DISPOSITION: Probably in 2 to 3 days once the renal function improves. Plan of care was discussed with the patient in detail. He stated understanding. Job ID: [id number]
[2018-06-24] MEDS: glipiZIDE 5 MG TAB PO SCH (07:57)
[2018-06-24] MEDS: Carvedilol 3.125 MG TAB PO SCH ×2 (07:57→18:47)
[2018-06-24] MEDS: Enoxaparin Sodium 30 MG/0.3 ML SYRINGE SC SCH (10:23)
[2018-06-24] MEDS: Aspirin 81 mg Enteric Coated Tablet PO SCH (10:23)
[2018-06-24] MEDS: Famotidine 20 MG TAB PO SCH ×2 (10:23→21:29)
[2018-06-24] MEDS: Insulin Glargine 10 UNITS in Pre-Filled Syringe SC SCH (10:24)
[2018-06-24 10:41] LABS: Anion Gap 12 mmol/L (10-20); BUN (Urea Nitrogen) 16 mg/dL (8.9-20.6); Calc. Creatinine Clearance 0 mL/min (70-130); Calcium 9.4 mg/dL (7.8-10.44); Carbon Dioxide 26 mmol/L (22-29); Chloride 98 mmol/L (98-107); Estimated GFR-MDRD 52; Glucose 468 mg/dL (70-105); Potassium 3.8 mmol/L (3.5-5.1); Sodium 132 mmol/L (136-145)
[2018-06-24] MEDS ORDERED: Insulin Glargine 10 UNITS in Pre-Filled Syringe 1 EACH SC SCH (12:30)
[2018-06-24] MEDS: Sodium Chloride 0.9% 1,000 ML IV SCH (13:41)
[2018-06-24] MEDS ORDERED: Insulin Glargine 15 UNITS in Pre-Filled Syringe 1 EACH SC SCH (21:00)
[2018-06-24] MEDS ORDERED: Insulin Glargine 20 UNITS in Pre-Filled Syringe 1 EACH SC SCH (21:00)
--- NOTE | 2018-06-24 21:42 | PDOC.PN ---
- Subjective Encounter Start Date: 06/24/18 Encounter Start Time: 12:45 Patient seen and examined for FARA/Uncontrolled DM2. No new complaints. No overnight events - Objective Resuscitation Status - Order Detail: 06/23/18 06:50 Resuscitation Status Routine Resuscitation Status: FULL: Full Resuscitation MAR Reviewed: Yes Vital Signs & Weight: Vital Signs (12 hours) Temp Pulse Resp BP Pulse Ox 06/24/18 20:00 98.9 F 83 16 134/84 98 06/24/18 15:02 98.6 F 73 20 150/91 H 97 06/24/18 11:28 98.4 F 75 22 H 136/93 H 93 L I&O: 06/23/18 06/24/18 06/25/18 06:59 06:59 06:59 Intake Total 4360 Output Total 1200 Balance 3160 Result Diagrams: 06/22/18 19:52 06/25/18 07:18 Additional Labs: Accuchecks 06/24/18 06/24/18 06/24/18 21:03 18:33 15:01 POC Glucose 317 H 345 H 321 H 06/24/18 06/24/18 06/24/18 10:17 06:34 02:27 POC Glucose 395 H 422 H 352 H 06/23/18 06/22/18 21:02 19:23 POC Glucose 441 H Greater than 550 H* Phys Exam - Physical Examination Constitutional: NAD Respiratory: no wheezing, no rhonchi Cardiovascular: RRR, no rub Gastrointestinal: soft, non-tender, positive bowel sounds Musculoskeletal: no edema Neurological: moves all 4 limbs Dx/Plan - Plan DVT proph w/SCDs IMPRESSION: 1. Acute kidney injury on chronic kidney disease stage 2 secondary to uncontrolled diabetes. 2. Uncontrolled diabetes. A1c 17.1. 3. Hyponatremia. 4. Dehydration/contraction alkalosis. 5. Medication noncompliance. 6. Chronic systolic and diastolic heart failure appears to be compensated. 7. Hypertension. 8. Lisinopril allergy. 9. Mild chronic anemia. 10. Sick sinus syndrome, status post pacemaker. 11. Hyperlipidemia. 12. Obstructive sleep apnea, currently not on CPAP. PLAN Reduce IVF Increase Lantus to 20 units BID Cont sliding scale Consult Contract Analyst AM labs Cont Glipizide Cont low dose Coreg Review of Systems - Review of Systems Cardiovascular: negative: chest pain, palpitations, orthopnea, paroxysmal nocturnal dyspnea, edema, light headedness, other Gastrointestinal: negative: Nausea, Vomiting, Abdominal Pain, Diarrhea, Constipation, Melena, Hematochezia, Other - Medications/Allergies Allergies/Adverse Reactions: Allergies Allergy/AdvReac Type Severity Reaction Status Date / Time lisinopril Allergy Swollen Verified 12/24/17 10:43 Lips Medications: Current Medications Acetaminophen (Tylenol) 650 mg PO Q4H PRN PRN Reason: Headache/Fever/Mild Pain (1-3) Albuterol/Ipratropium (Duoneb) 3 ml NEB [id number] PRN PRN Reason: SOB &/or Wheezing Aspirin (Ecotrin) 81 mg PO DAILY [facility] Last Admin: 06/24/18 10:23 Dose: 81 mg Calcium Carbonate (Tums) 1,000 mg PO Q4H PRN PRN Reason: Heartburn or Indigestion Carvedilol (Coreg) 3.125 mg PO BID-[facility] Last Admin: 06/24/18 18:47 Dose: 3.125 mg Dextrose/Water (Dextrose 50%) 25 gm SLOW IVP PRN PRN PRN Reason: Hypoglycemia Enoxaparin Sodium (Lovenox) 30 mg SC 0900 [facility] Last Admin: 06/24/18 10:23 Dose: 30 mg Famotidine (Pepcid) 20 mg PO BID [facility] Last Admin: 06/24/18 21:29 Dose: 20 mg Glipizide (Glucotrol) 5 mg PO DAILY-[facility] Last Admin: 06/24/18 07:57 Dose: 5 mg Glucagon (Glucagon) 1 mg IM PRN PRN PRN Reason: Hypoglycemia Hydralazine HCl (Apresoline) 10 mg SLOW IVP Q4H PRN PRN Reason: SBP Greater Than 180 Dextrose/Water (D5w) 1,000 mls @ 0 mls/hr IV .Q0M PRN PRN Reason: Hypoglycemia Sodium Chloride (Normal Saline 0.9%) 1,000 mls @ 50 mls/hr IV .Q20H [facility] Last Admin: 06/24/18 13:41 Dose: 1,000 mls Insulin Glargine 20 units/ (Miscellaneous Medication) 0.2 mls @ 0 mls/hr SC BID [facility] Last Admin: 06/24/18 21:29 Dose: 0.2 mls Insulin Human Regular (Humulin R) 0 units SC .MODERATE SLIDING SC PRN PRN Reason: Moderate Correctional Scale Last Admin: 06/24/18 18:46 Dose: 8 unit Insulin Human Regular (Humulin R) 0 units SC .BEDTIME SLIDING SC PRN PRN Reason: Bedtime Correctional Scale Last Admin: 06/24/18 21:30 Dose: 4 unit/kg Mineral Oil/White Petrolatum (Eucerin Cream) 0 gm TOP BIDPRN PRN PRN Reason: Dry Skin Nitroglycerin (Nitrostat) 0.4 mg PO Q5MIN PRN PRN Reason: Chest Pain Ondansetron HCl (Zofran) 4 mg SLOW IVP Q6H PRN PRN Reason: Nausea/Vomiting Last Admin: 06/23/18 16:30 Dose: 4 mg Polyethylene Glycol (Miralax) 17 gm PO DAILY PRN PRN Reason: Constipation
[2018-06-25] MEDS: Insulin Regular 300 UNITS/3 ML VIAL SC PRN ×5 (02:37→21:04)
[2018-06-25 08:24] LABS: Anion Gap 16 mmol/L (10-20); BUN (Urea Nitrogen) 15 mg/dL (8.9-20.6); Calc. Creatinine Clearance 0 mL/min (70-130); Calcium 9.5 mg/dL (7.8-10.44); Carbon Dioxide 22 mmol/L (22-29); Chloride 101 mmol/L (98-107); Estimated GFR-MDRD 53; Glucose 382 mg/dL (70-105); Potassium 3.6 mmol/L (3.5-5.1); Sodium 135 mmol/L (136-145)
[2018-06-25] MEDS: Sodium Chloride 0.9% 1,000 ML IV SCH (08:48)
[2018-06-25] MEDS: glipiZIDE 5 MG TAB PO SCH ×2 (08:48→17:57)
[2018-06-25] MEDS: Carvedilol 3.125 MG TAB PO SCH ×2 (08:48→17:58)
[2018-06-25] MEDS: Famotidine 20 MG TAB PO SCH ×2 (10:24→21:03)
[2018-06-25] MEDS: Insulin Glargine 25 UNITS in Pre-Filled Syringe 1 EACH SC SCH ×2 (10:25→21:03)
[2018-06-25] MEDS: Aspirin 81 mg Enteric Coated Tablet PO SCH (10:25)
--- NOTE | 2018-06-25 22:54 | PDOC.PN ---
- Subjective Encounter Start Date: 06/25/18 Encounter Start Time: 15:00 Patient seen and examined for uncontrolled DM2. No new complaints. No overnight events - Objective Resuscitation Status - Order Detail: 06/23/18 06:50 Resuscitation Status Routine Resuscitation Status: FULL: Full Resuscitation MAR Reviewed: Yes Vital Signs & Weight: Vital Signs (12 hours) Temp Pulse Resp BP Pulse Ox 06/25/18 15:52 98.3 F 78 20 148/89 H 99 I&O: 06/24/18 06/25/18 06/26/18 06:59 06:59 06:59 Intake Total 5320 Output Total 1200 Balance 4120 Result Diagrams: 06/22/18 19:52 06/25/18 07:18 Additional Labs: Accuchecks 06/25/18 06/25/18 06/25/18 20:45 16:25 10:22 POC Glucose 324 H 301 H 377 H 06/25/18 06/25/18 05:46 02:31 POC Glucose 365 H 350 H Phys Exam - Physical Examination Constitutional: NAD Respiratory: no wheezing, no rhonchi Cardiovascular: RRR, no rub Gastrointestinal: soft, non-tender, positive bowel sounds Musculoskeletal: no edema Neurological: moves all 4 limbs Dx/Plan - Plan DVT proph w/SCDs IMPRESSION: 1. Acute kidney injury on chronic kidney disease stage 2 secondary to uncontrolled diabetes. improving 2. Uncontrolled diabetes. A1c 17.1. 3. Hyponatremia. 4. Dehydration/contraction alkalosis. 5. Medication noncompliance. 6. Chronic systolic and diastolic heart failure appears to be compensated. 7. Hypertension. 8. Lisinopril allergy. 9. Mild chronic anemia. 10. Sick sinus syndrome, status post pacemaker. 11. Hyperlipidemia. 12. Obstructive sleep apnea, currently not on CPAP. PLAN Increase Lantus to 25 units BID Cont sliding scale Cont Glipizide Cont low dose Coreg DC in AM if stable No ACEI/ARB/Aldactone due to renal dysfunction Review of Systems - Review of Systems Respiratory: negative: Cough, Dry, Shortness of Breath, Hemoptysis, SOB with Excertion, Pleuritic Pain, Sputum, Wheezing Cardiovascular: negative: chest pain, palpitations, orthopnea, paroxysmal nocturnal dyspnea, edema, light headedness, other - Medications/Allergies Allergies/Adverse Reactions: Allergies Allergy/AdvReac Type Severity Reaction Status Date / Time lisinopril Allergy Swollen Verified 12/24/17 10:43 Lips Medications: Current Medications Acetaminophen (Tylenol) 650 mg PO Q4H PRN PRN Reason: Headache/Fever/Mild Pain (1-3) Albuterol/Ipratropium (Duoneb) 3 ml NEB [id number] PRN PRN Reason: SOB &/or Wheezing Aspirin (Ecotrin) 81 mg PO DAILY [facility] Last Admin: 06/25/18 10:25 Dose: 81 mg Calcium Carbonate (Tums) 1,000 mg PO Q4H PRN PRN Reason: Heartburn or Indigestion Carvedilol (Coreg) 3.125 mg PO BID-[facility] Last Admin: 06/25/18 17:58 Dose: 3.125 mg Dextrose/Water (Dextrose 50%) 25 gm SLOW IVP PRN PRN PRN Reason: Hypoglycemia Famotidine (Pepcid) 20 mg PO BID [facility] Last Admin: 06/25/18 21:03 Dose: 20 mg Glipizide (Glucotrol) 5 mg PO BID-[facility] Last Admin: 06/25/18 17:57 Dose: 5 mg Glucagon (Glucagon) 1 mg IM PRN PRN PRN Reason: Hypoglycemia Hydralazine HCl (Apresoline) 10 mg SLOW IVP Q4H PRN PRN Reason: SBP Greater Than 180 Dextrose/Water (D5w) 1,000 mls @ 0 mls/hr IV .Q0M PRN PRN Reason: Hypoglycemia Insulin Glargine 25 units/ (Miscellaneous Medication) 0.25 mls @ 0 mls/hr SC BID [facility] Last Admin: 06/25/18 21:03 Dose: 0.25 mls Insulin Human Regular (Humulin R) 0 units SC .MODERATE SLIDING SC PRN PRN Reason: Moderate Correctional Scale Last Admin: 06/25/18 18:00 Dose: 8 unit Insulin Human Regular (Humulin R) 0 units SC .BEDTIME SLIDING SC PRN PRN Reason: Bedtime Correctional Scale Last Admin: 06/25/18 21:04 Dose: 4 unit/kg Mineral Oil/White Petrolatum (Eucerin Cream) 0 gm TOP BIDPRN PRN PRN Reason: Dry Skin Nitroglycerin (Nitrostat) 0.4 mg PO Q5MIN PRN PRN Reason: Chest Pain Ondansetron HCl (Zofran) 4 mg SLOW IVP Q6H PRN PRN Reason: Nausea/Vomiting Last Admin: 06/23/18 16:30 Dose: 4 mg Polyethylene Glycol (Miralax) 17 gm PO DAILY PRN PRN Reason: Constipation Sodium Chloride (Flush - Normal Saline) 10 ml IVF PRN PRN PRN Reason: Saline Flush
[2018-06-26] MEDS: Insulin Regular 300 UNITS/3 ML VIAL SC PRN ×3 (02:00→10:48)
[2018-06-26 08:08] VITALS: TEMP 97.7
[2018-06-26] MEDS: Insulin Glargine 25 UNITS in Pre-Filled Syringe 1 EACH SC SCH (08:37)
[2018-06-26] MEDS: glipiZIDE 5 MG TAB PO SCH (08:37)
[2018-06-26] MEDS: Aspirin 81 mg Enteric Coated Tablet PO SCH (08:37)
[2018-06-26] MEDS: Famotidine 20 MG TAB PO SCH (08:37)
[2018-06-26] MEDS: Carvedilol 3.125 MG TAB PO SCH (08:37)
[2018-06-26 11:16] VITALS: BP 159/93
--- NOTE | 2018-06-26 20:02 | DIS ---
DATE OF ADMISSION: 06/22/2018 DATE OF DISCHARGE: 06/26/2018 DISCHARGE DISPOSITION: Home. FOLLOWUP: Follow up with primary care physician at [facility]. DISCHARGE MEDICATIONS: 1. NPH 20 units b.i.d. 2. Glipizide 5 mg b.i.d. 3. Carvedilol 6.25 mg b.i.d. ALLERGIES: THE PATIENT IS ALLERGIC TO LISINOPRIL. SIGNIFICANT LABORATORY DATA: Creatinine on admission 2.4, at discharge 1.67. Repeat basic metabolic panel after 1 week is recommended. Primary care physician advised to follow. BRIEF HOSPITAL COURSE: The patient is a 48-year-old male with hypertension, coronary artery disease, and congestive heart failure, presented to the hospital with elevated blood sugar over 500. In the emergency room, his blood sugar was 699 with a creatinine of 2.4. Please refer to the history and physical for further details. The patient was admitted to the hospital with a diagnosis of acute kidney injury on chronic kidney disease stage 2 secondary to uncontrolled diabetes. His A1c was 17.1. He was started on IV fluids along with insulin. Please note that the patient has been noncompliant with his medication. He is also noncompliant with his diet. He was extensively counseled on diabetes mellitus type 2 as well as diabetic diet. His blood sugars on the day of discharge remained in 300 range. The patient was advised to stay in the hospital for 1 or 2 more days to adjust his insulin. However, the patient requested to be discharged. He will monitor his blood sugar 2 to 3 times a day. He was advised to increase the insulin dose by 2 to 4 units based on the blood sugar. He stated understanding. He understands the complications from elevated blood sugars. He appears stable for discharge. FINAL DIAGNOSES: 1. Acute kidney injury on chronic kidney disease stage 2 secondary to uncontrolled diabetes. 2. Hyponatremia. 3. Dehydration. 4. Medication noncompliance. 5. Chronic systolic and diastolic heart failure, compensated. The patient has been started on low-dose carvedilol. He is allergic to JULIEN inhibitor. Aldactone was not started due to renal insufficiency. 6. Hypertension. 7. Chronic anemia. 8. Sick sinus syndrome, status post pacemaker. 9. Hyperlipidemia. 10. Obstructive sleep apnea. He was advised to get a sleep study as outpatient. Job ID: [id number]
== END 2018-06-26 11:53 | disposition home or self-care (01) | DRG 683 ==
LOC: ERS 19:15 → ERHOLD 22:12 → SJJU 06-23 13:19
PROVIDERS: ADMIT Internal Medicine; ATTEND Internal Medicine
DX: N17.9 Acute kidney failure, unspecified (principal); I50.22 Chronic systolic (congestive) heart failure; I13.0 Hypertensive heart and chronic kidney disease with heart failure and stage 1 through stage 4 chronic kidney disease, or unspecified chronic kidney disease; E87.1 Hypo-osmolality and hyponatremia; E87.3 Alkalosis; E11.65 Type 2 diabetes mellitus with hyperglycemia; E78.5 Hyperlipidemia, unspecified; I25.10 Atherosclerotic heart disease of native coronary artery without angina pectoris; Z91.14 Patient's other noncompliance with medication regimen; G47.33 Obstructive sleep apnea (adult) (pediatric); I49.5 Sick sinus syndrome; Z95.0 Presence of cardiac pacemaker; Z86.711 Personal history of pulmonary embolism; N18.2 Chronic kidney disease, stage 2 (mild); E86.0 Dehydration; D64.9 Anemia, unspecified; Z88.8 Allergy status to other drugs, medicaments and biological substances
CPT/HCPCS: 36415; 36416; 80048; 80053; 81003; 81015; 82010; 83036; 84484; 85025; 85610; 85730; 93005; 94760; 96360; 96361; J1650; J1815; J1825

== ENCOUNTER 2019-09-18 21:16 | Inpatient (IN) | payer OTHER ==
--- NOTE | 2019-09-18 22:00 | RAD ---
SINGLE VIEW OF THE CHEST: 09/18/19 COMPARISON: 12/22/17 HISTORY: Syncope and fall. FINDINGS: Single view of the chest shows an enlarged cardiomediastinal silhouette. The pacemaker is unchanged i n position. There is no evidence of consolidation, mass, or pleural effusion. IMPRESSION: No evidence of acute cardiopulmonary disease. POS: EAA
[2019-09-18 22:12] LABS: #Basophils 0.1 thou/uL (0.0-0.2); #Eosinphils 0.1 thou/uL (0.0-0.7); #Lymphocytes 2.4 thou/uL (1.20-3.40); #Monocytes 0.5 thou/uL (0.11-0.59); #Neutrophils 4.6 thou/uL (1.40-6.50); %Basophils 0.9 % (0.0-1.0); %Eosinophils 0.7 % (0.0-10.0); %Lymphocytes 31.2 % (21.0-51.0); %Monocytes 6.9 % (0.0-10.0); %Neutrophils 60.2 % (42.0-75.0); Hemoglobin 13.4 g/dL (14.0-18.0); Mean Corpuscular HGB CONC 31.7 g/dL (32.0-36.0); Mean Corpuscular Hemoglobin 24.9 pg (27.0-31.0); Mean Corpuscular Volume 78.6 fL (78.0-98.0); Mean Platelet Volume 9.3 fL (7.4-10.4); Platelet Count 221 thou/uL (130-400); Red Blood Cell (RBC) Count 5.38 mill/uL (4.70-6.10); White Blood Cell (WBC) Count 7.6 thou/uL (4.8-10.8)
[2019-09-18 22:35] LABS: Bacteria/HPF None Seen HPF (None Seen); Bilirubin Negative (Negative); Blood, Urine Negative (Negative); Clarity Clear (Clear); Glucose, Urine (Dipstick) Greater than 1000 mg/dL (Negative); Leukocyte Negative Leu/uL (Negative); Nitrite Negative (Negative); Protein, Urine (Dipstick) 70 mg/dL (Neg-Trace); RBC/HPF 0-3 HPF (0-3); Squamous Epithelial None Seen HPF (0-3); Urobilinogen Normal mg/dL (Less than 2); WBC/HPF 0-3 HPF (0-3)
--- NOTE | 2019-09-18 22:42 | CT ---
CT OF THE BRAIN WITHOUT CONTRAST: 09/18/19 COMPARISON: 05/12/18. HISTORY: Syncope in the shower today. Dizziness and headache. TECHNIQUE: Multiple contiguous axial images were obtained in a CT of the brain without contrast. FINDINGS: The brain is normal in morphology and attenuation without focal lesions or confluent areas of infarct ion. There is no evidence of hydrocephalus, intracranial hemorrhage or extra-axial fluid collection. The calvarium and overlying soft tissues are unremarkable. The visualized paranasal sinuses and masto id air cells are well aerated. IMPRESSION: No evidence of acute intracranial abnormality. POS: EAA
--- NOTE | 2019-09-18 22:46 | CT ---
CT CERVICAL SPINE WITHOUT CONTRAST: 09/18/19 COMPARISON: 02/03/15 HISTORY: Syncope in the shower earlier today with head trauma and neck pain. TECHNIQUE: Multiple contiguous axial images were obtained in a CT of the cervical spine without contrast. Sagitt al and coronal reformats were performed. FINDINGS: Mild degenerative changes are seen in the cervical spine. The vertebral bodies demonstrate normal hei ght and alignment without acute fracture or subluxation. No prevertebral soft tissue swelling is seen . The posterior facets are well aligned. Normal alignment of the skull baes with the cervical spine is seen. IMPRESSION: No evidence of acute osseous abnormality of the cervical spine. POS: EAA
[2019-09-18 22:54] LABS: ALT (SGPT) 28 U/L (8-55); AST (SGOT) 20 U/L (5-34); Albumin 4.1 g/dL (3.5-5.0); Alkaline Phosphatase 124 U/L (40-110); Anion Gap 14 mmol/L (10-20); BUN (Urea Nitrogen) 15 mg/dL (8.9-20.6); Bilirubin, Total 0.3 mg/dL (0.2-1.2); CK (CPK) 249 U/L (30-200); Calc. Creatinine Clearance 0 mL/min (70-130); Calcium 9.5 mg/dL (7.8-10.44); Carbon Dioxide 26 mmol/L (22-29); Chloride 103 mmol/L (98-107); Estimated GFR-MDRD 69; Globulin 3.8 g/dL (2.4-3.5); Glucose 247 mg/dL (70-105); Potassium 3.9 mmol/L (3.5-5.1); Protein, Total 7.9 g/dL (6.0-8.3); Sodium 139 mmol/L (136-145)
--- NOTE | 2019-09-19 00:03 | PDOC.FPRHP ---
- History of Present Illness Chief Complaint: syncope History of Present Illness: 49 yo w/ extensive cardiac hx, DMII, OVIDIO [facility]. Pt says he has had these episodes of blacking out recently. Reports passes out. Pt reports that he passes out for a few seconds. Was in shower tonight and all the sudden was on the floor. Pt reports not feeling well all day. Reports feeling numb on left side of body a few hours prior to syncopal episode. Reports having headache currentl. Pt reports still feeling slightly dizzy. Pt reports throwing up 3x prior to episode today. Reports palpitations. Pt denies any chest pain, SOB currently or prior to episode. Denies any strenuous activity when episodes occurring. Reports episode day prior was just sitting at table eating. Pt reports never having stroke/TIA in past. Pt denies any swelling in LE. Denies any cough. Denies any fever or chills. Denies any vision changes. Pt reports having slow heart beat back in 2013 and got pacemaker. ED Course: Pacemaker interogated - Allergies/Adverse Reactions Allergies Allergy/AdvReac Type Severity Reaction Status Date / Time lisinopril Allergy Swollen Verified 09/19/19 01:54 Lips - Home Medications Medication Instructions Recorded Confirmed Type Carvedilol [Coreg] 6.25 mg PO BID-WM 06/23/18 06/23/18 History Blood-Glucose Meter [Blood Glucose 1 each ASDIR #1 each 06/26/18 Rx Meter] NPH, Human Insulin Isophane 20 unit SC BID #1 vial 06/26/18 Rx [HumuLIN N] Syrge-Ndl,Ins 0.3 ml Half Dick 1 each ASDIR #100 disp.syrin 06/26/18 Rx [Insulin Syringe] glipiZIDE [Glucotrol] 5 mg PO BID-AC #60 tab 06/26/18 Rx Comments: The above medication list is not correct. Below is the updated medications pt is currently taking Metformin 500 mg once daily Farxiga 5 mg daily Januvia 25 mg oral Lantus 43u BID Humulin sliding scale ASA 325 mg Carvedilol 12.5 mg Amlodipine 10 mg - History PMHx: CAD w/ CT, combined CHF (last echo 11/2017 showed EF 20-25% w/ diastolic dysfunction), HLD, OVIDIO, SSS s/p pacemaker, DMII PSHx: Pacemaker placement FHx: HTN, DM, Reports Mom passed of some sort of cancer Social: Pt denied any hx or current smoking, denied any alcohol use, denied any illicit drug use Pt Full Code - Review of Systems General: denies: fever/chills, weight/appetite/sleep changes, night sweats Eyes: denies: vision changes ENT: denies: nasal congestion Respiratory: denies: cough, congestion, shortness of breath, exercise intolerance Cardiovascular: reports: palpitation. denies: chest pain, edema Gastrointestinal: reports: vomiting (reports vomiting 3x today before blackout episode). denies: nausea, diarrhea Genitourinary: denies: incontinence, dysuria Skin: denies: rashes, lesions Musculoskeletal: denies: pain, stiffness, swelling Neurological: reports: numbness (reports numbness on left side prior to black out episode for a few hours), syncope (Has had a few episodes of second long blackouts.). denies: seizure, weakness Psychological: denies: anxiety, depression - Vital signs BP: [170/95] HR: [73] RR: [18] Tmax: [97.4] Pox: [98]% on [RA] Wt: [159 kg] - Physical Exam Constitutional: NAD, awake, alert and oriented, well developed HEENT: conjunctiva clear, grossly normal vision, grossly normal hearing, MMM Neck: supple, FROM, trachea midline, no JVD, no thyromegaly -Neck: Unable to listen to carotid arteries as ER did not have any disposable stethescopes for use and pt at this time is COVID R/O Chest: no-tender to palpation, no lesions -Heart: Unable to auscultate as ER did not have any sterile stethescopes to use and pt is COVID r/o at this time. Lungs: no respiratory distress, other (symmetric chest expansion noted) -Lungs: Unable to auscultate as ER did not have any sterile stethescopes to use and pt is COVID r/o at this time. Abdomen: soft Musculoskeletal: normal structure, normal tone, ROM grossly normal Neurological: no focal deficit, CN II-XII intact, normal sensation, DTRs 2+ Skin: no rash/lesions, good turgor, capillary refill <2 seconds Heme/Lymphatic: no unusual bruising or bleeding Psychiatric: normal mood and affect, good judgment and insight, intact recent and remote memory FMR H&P: Results - Labs Result Diagrams: 09/19/19 04:48 09/19/19 04:48 Lab results: WBC 7.6 thou/uL (4.8-10.8) 09/18/19 21:53 Hgb 13.4 g/dL (14.0-18.0) L 09/18/19 21:53 Hct 42.2 % (42.0-52.0) 09/18/19 21:53 MCV 78.6 fL (78.0-98.0) 09/18/19 21:53 Plt Count 221 thou/uL (130-400) 09/18/19 21:53 Neutrophils % 60.2 % (42.0-75.0) 09/18/19 21:53 Sodium 139 mmol/L (136-145) 09/18/19 21:53 Potassium 3.9 mmol/L (3.5-5.1) 09/18/19 21:53 Chloride 103 mmol/L (98-107) 09/18/19 21:53 Carbon Dioxide 26 mmol/L (22-29) 09/18/19 21:53 BUN 15 mg/dL (8.9-20.6) 09/18/19 21:53 Creatinine 1.34 mg/dL (0.7-1.3) H 09/18/19 21:53 Glucose 247 mg/dL (70-105) H 09/18/19 21:53 Calcium 9.5 mg/dL (7.8-10.44) 09/18/19 21:53 Total Bilirubin 0.3 mg/dL (0.2-1.2) 09/18/19 21:53 AST 20 U/L (5-34) 09/18/19 21:53 ALT 28 U/L (8-55) 09/18/19 21:53 Alkaline Phosphatase 124 U/L (40-110) H 09/18/19 21:53 Creatine Kinase 249 U/L (30-200) H 09/18/19 21:53 B-Natriuretic Peptide 10.3 pg/mL (0-100) 09/18/19 21:53 Serum Total Protein 7.9 g/dL (6.0-8.3) 09/18/19 21:53 Albumin 4.1 g/dL (3.5-5.0) 09/18/19 21:53 Urine Ketones Negative mg/dL (Negative) 09/18/19 22:00 Urine Blood Negative (Negative) 09/18/19 22:00 Urine Nitrite Negative (Negative) 09/18/19 22:00 Ur Leukocyte Esterase Negative [place]/uL (Negative) 09/18/19 22:00 Urine RBC 0-3 HPF (0-3) 09/18/19 22:00 Urine WBC 0-3 HPF (0-3) 09/18/19 22:00 Ur Squamous Epith Cells None Seen HPF (0-3) 09/18/19 22:00 Urine Bacteria None Seen HPF (None Seen) 09/18/19 22:00 - EKG Interpretation EKG: Paced rhythm, No ST elevation or other abnormality noted - Radiology Interpretation CT scan - head Status: image reviewed by me, report reviewed by me Additional comment: CT head: No evidence acute intracranial abnormality CT Neck: No acute osseous abnormality of neck Chest x-ray Status: image reviewed by me, report reviewed by me Additional comment: No evidence of acute cardiopulmonary dz FMR H&P: A/P - Problem List (1) Morbid obesity Current Visit: No Status: Acute Code(s): E66.01 - MORBID (SEVERE) OBESITY DUE TO EXCESS CALORIES (2) Sick sinus syndrome Current Visit: No Status: Acute Code(s): I49.5 - SICK SINUS SYNDROME (3) HLD (hyperlipidemia) Current Visit: No Status: Chronic Code(s): E78.5 - HYPERLIPIDEMIA, UNSPECIFIED Qualifiers: Hyperlipidemia type: unspecified Qualified Code(s): E78.5 - Hyperlipidemia , unspecified (4) Hypertension Current Visit: No Status: Chronic Code(s): I10 - ESSENTIAL (PRIMARY) HYPERTENSION Qualifiers: Hypertension type: essential hypertension Qualified Code(s): I10 - Essential (primary) hypertension (5) OVIDIO (obstructive sleep apnea) Current Visit: No Status: Chronic Code(s): G47.33 - OBSTRUCTIVE SLEEP APNEA (ADULT) (PEDIATRIC) (6) T2DM (type 2 diabetes mellitus) Current Visit: No Status: Chronic Qualifiers: Diabetes mellitus nursing home insulin use: without intermission coordinator use Diabetes mellitus complication status: without complication Qualified Code(s): E11.9 - Type 2 diabetes mellitus without complications (7) Atrial dysrhythmia Current Visit: Yes Status: Acute Code(s): I49.8 - OTHER SPECIFIED CARDIAC ARRHYTHMIAS (8) Syncope Current Visit: Yes Status: Acute Code(s): R55 - SYNCOPE AND COLLAPSE (9) TIA (transient ischemic attack) Current Visit: Yes Status: Acute Code(s): G45.9 - TRANSIENT CEREBRAL ISCHEMIC ATTACK, UNSPECIFIED (10) CKD (chronic kidney disease) stage 2, GFR 60-89 ml/min Current Visit: No Status: Acute Code(s): N18.2 - CHRONIC KIDNEY DISEASE, STAGE 2 (MILD) - Plan Syncope likely 2/2 atrial dysrhytmia -Pacemaker interogated and showed 4 hours of atrial tachycardia today w/ VHR in the 200's. Showed episode day prior as well. Pt reported feeling heart palpitations. -EKG shows paced rhythm in ER. -Trop <.01, will trend x3 -Will check orthostatic BP -Will check carotid doppler -ECHO ordered -TSH, FLP ordered -Cardiology Consulted for AM- Will await recs -Therapeutic Lovenox 150mg BID -Will admit to tele for continuous monitoring TIA -Pt reported left sided numbness prior to syncopal episode. Reports dizziness in ER. Neuro exam normal at time of evaluation. -CT head neg -Carotid doppler as above -Will order MRI for morning. -Will allow for permissive HTN at this time for 24 hrs. -PT/OT/Speech consulted -Neuro Consulted as first episode of TIA sx's. -Pt with atrial dysrhythmia for prolonged period per pacemaker interogation. Pt at risk of embolic clots. DMII -Continued home lantus dose 43u BID. Continued Januvia. -Held Metformin and Farxiga not available at this time. -Mild SSI -Accuchecks ACHS CAD -Holding home BP meds -Cardiologly consulted Hx SSS s/p pacemaker -Pacemaker interogation shows concern for atrial dysrhythmia -Cardiology consulted HTN -Held home BP meds. Will allow for permissive HTN for 24hrs. -Labetolol and Hydralazine IV PRN for severe range pressures Hx of HLD -Not on statin -FLP pending CKD2 -Cr stable from previous checks. will continue to monitor OVIDIO -CPAP ordered Dispo: Will trend trops. Will monitor on Tele. Cardiology consulted- will await recs. Pt reported numbness prior to syncope lasting a few hours. Will evaluate for TIAvs Stroke. Addendum - Attending - Attending Attestation Date/Time: 09/19/19 1337 I personally evaluated the patient and discussed the management with Dr. Kendall. I agree with the History, Examination, Assessment and Plan documented above with any addition or exceptions noted below. syncopal episodes consistent with events on pacemaker. COVID r/o pending. once returned, will consult cardiology to adjust medications and pacemaker settings. Asymptomatic at time of exam. Cardiac exam RRR no murmur. Pulm exam CTA-B.
[2019-09-19] MEDS ORDERED: Enoxaparin Sodium 120 MG/0.8 ML SYRINGE SC SCH (01:00)
[2019-09-19] MEDS ORDERED: Enoxaparin Sodium 30 MG/0.3 ML SYRINGE SC SCH (01:00)
[2019-09-19 01:17] LABS: Troponin I Less than 0.010 ng/mL (< 0.028)
[2019-09-19 01:38] VITALS: BMI 41.5
[2019-09-19] MEDS ORDERED: Ondansetron ODT 4 MG TAB SL PRN (01:56)
[2019-09-19] MEDS ORDERED: Ondansetron PF 4 MG/2 ML Vial IVP PRN (01:56)
[2019-09-19] MEDS ORDERED: Acetaminophen 325 MG TAB PO PRN (01:57)
[2019-09-19] MEDS ORDERED: Acetaminophen 650 MG Suppository PR PRN (01:57)
[2019-09-19] MEDS ORDERED: Dextrose 5% in Water 1,000 ML IV PRN (01:57)
[2019-09-19] MEDS ORDERED: hydrALAZINE 20 MG/ML VIAL SLOW IVP PRN (01:57)
[2019-09-19] MEDS ORDERED: Labetalol HCl 100 MG/20 ML VIAL SLOW IVP PRN (01:57)
[2019-09-19] MEDS ORDERED: HumaLOG 300 UNITS/3 ML VIAL SC PRN (01:57)
[2019-09-19] MEDS ORDERED: Dextrose 50% Abboject 50 ML SYRINGE SLOW IVP PRN (01:57)
[2019-09-19] MEDS ORDERED: Aspirin Chewable 81 MG TAB PO SCH (02:15)
[2019-09-19] MEDS: Sodium Chloride 0.9% 1,000 ML IV SCH ×2 (02:33→10:44)
[2019-09-19 05:20] LABS: #Lymphocytes 2.8 thou/uL (1.20-3.40); #Monocytes 0.8 thou/uL (0.11-0.59); #Neutrophils 6.3 thou/uL (1.40-6.50); %Basophils 0.2 % (0.0-1.0); %Eosinophils 0.3 % (0.0-10.0); %Lymphocytes 28.2 % (21.0-51.0); %Monocytes 7.8 % (0.0-10.0); %Neutrophils 63.5 % (42.0-75.0); Hemoglobin 12.9 g/dL (14.0-18.0); Mean Corpuscular HGB CONC 31.3 g/dL (32.0-36.0); Mean Corpuscular Hemoglobin 24.6 pg (27.0-31.0); Mean Corpuscular Volume 78.8 fL (78.0-98.0); Mean Platelet Volume 9.2 fL (7.4-10.4); Platelet Count 213 thou/uL (130-400); RBC Distribution Width 14.1 % (11.5-14.5); Red Blood Cell (RBC) Count 5.23 mill/uL (4.70-6.10)
[2019-09-19 05:34] LABS: ALT (SGPT) 27 U/L (8-55); AST (SGOT) 17 U/L (5-34); Albumin 3.7 g/dL (3.5-5.0); Alkaline Phosphatase 109 U/L (40-110); Anion Gap 13 mmol/L (10-20); BUN (Urea Nitrogen) 13 mg/dL (8.9-20.6); Bilirubin, Total 0.3 mg/dL (0.2-1.2); Calc. Creatinine Clearance 161 mL/min (70-130); Calcium 9.3 mg/dL (7.8-10.44); Carbon Dioxide 25 mmol/L (22-29); Cardiac Risk 5.1 (Less than 4.5); Chloride 103 mmol/L (98-107); Cholesterol 200 mg/dl (< 200 Desired); Estimated GFR-MDRD 80; Glucose 238 mg/dL (70-105); HDL Cholesterol 39 mg/dL (>60 Neg Risk); LDL Cholesterol, Calculated 141 mg/dL; Potassium 4.2 mmol/L (3.5-5.1); Protein, Total 7.7 g/dL (6.0-8.3); Sodium 137 mmol/L (136-145); Triglycerides 102 mg/dL (Less than 150)
[2019-09-19 05:35] LABS: Troponin I Less than 0.010 ng/mL (< 0.028)
[2019-09-19] MEDS: HumaLOG 300 UNITS/3 ML VIAL SC PRN ×2 (06:29→13:02)
[2019-09-19] MEDS: Alogliptin 6.25 MG TAB PO SCH (08:33)
[2019-09-19] MEDS: Aspirin 81 mg Enteric Coated Tablet PO SCH (08:33)
[2019-09-19] MEDS: Famotidine 20 MG TAB PO SCH ×2 (08:33→20:01)
[2019-09-19] MEDS ORDERED: Amlodipine 5 MG TAB PO SCH (11:30)
[2019-09-19] MEDS: Insulin Glargine 43 UNITS in Pre-Filled Syringe 1 EACH SC SCH ×3 (13:23→21:59)
--- NOTE | 2019-09-19 15:19 | EKG ---
Test Reason : Blood Pressure : / mmHG Vent. Rate : 073 BPM Atrial Rate : 073 BPM P-R Int : 160 ms QRS Dur : 146 ms QT Int : 448 ms P-R-T Axes : 025 011 157 degrees QTc Int : 493 ms Electronic ventricular pacemaker Confirmed by ADAM CARVER [id number]), movie editor FLAVIO TRAMMELL ([id number]) on 09/19/2019 3:19:05 PM Referred By: Confirmed By:ADAM Moyer
[2019-09-19] MEDS: Atorvastatin Calcium 40 MG TAB PO SCH (20:00)
[2019-09-19] MEDS: Enoxaparin Sodium 120 MG/0.8 ML SYRINGE SC SCH (20:01)
[2019-09-19] MEDS ORDERED: Atorvastatin Calcium 40 MG TAB PO SCH (21:00)
[2019-09-20 05:27] LABS: Hemoglobin 12.7 g/dL (14.0-18.0); Platelet Count 220 thou/uL (130-400)
--- NOTE | 2019-09-20 07:02 | PDOC.FM ---
- Subjective Subjective: Denies SOB, CP, dizziness, presyncope, or palpitations. Nursing reports NAEO - Objective MAR Reviewed: Yes Vital Signs & Weight: Vital Signs (12 hours) Temp Pulse Resp BP Pulse Ox 09/20/19 04:00 97.7 F 71 20 159/82 H 96 09/20/19 00:00 97.0 F L 72 20 147/80 H 96 09/19/19 20:00 96.4 F L 78 20 140/86 96 Weight Admit Weight 150.593 kg Weight 150.593 kg I&O: 09/18/19 09/19/19 09/20/19 06:59 06:59 06:59 Intake Total 577.5 1770.25 Balance 577.5 1770.25 Result Diagrams: 09/20/19 04:52 09/20/19 04:52 Phys Exam - Physical Examination Constitutional: NAD HEENT: moist MMs Neck: no JVD Respiratory: no wheezing, clear to auscultation bilateral Cardiovascular: RRR, no significant murmur Gastrointestinal: soft, no distention, positive bowel sounds Musculoskeletal: pulses present Neurological: moves all 4 limbs Psychiatric: A&O x 3 Skin: cap refill <2 seconds Dx/Plan (1) Atrial dysrhythmia Code(s): I49.8 - OTHER SPECIFIED CARDIAC ARRHYTHMIAS Status: Acute (2) Syncope Code(s): R55 - SYNCOPE AND COLLAPSE Status: Acute (3) TIA (transient ischemic attack) Code(s): G45.9 - TRANSIENT CEREBRAL ISCHEMIC ATTACK, UNSPECIFIED Status: Acute (4) CKD (chronic kidney disease) stage 2, GFR 60-89 ml/min Code(s): N18.2 - CHRONIC KIDNEY DISEASE, STAGE 2 (MILD) Status: Acute (5) Community acquired pneumonia Code(s): J18.9 - PNEUMONIA, UNSPECIFIED ORGANISM Status: Acute (6) Coronary artery disease with history of myocardial infarction without history of CABG Code(s): I25.10 - ATHSCL HEART DISEASE OF [place] CORONARY ARTERY W/O ANG PCTRS; I25.2 - OLD MYOCARDIAL INFARCTION Status: Acute (7) Morbid obesity Code(s): E66.01 - MORBID (SEVERE) OBESITY DUE TO EXCESS CALORIES Status: Acute - Plan Plan: This is a 49 yo male with a pmh of HTN, [place], DM2, HFrEF, PE, SSS w/ pacemaker, CKD2 Syncope likely 2/2 atrial dysrhythmia -Pacemaker shows 4 hours of atrial tachycardia the day he came in w/ VHR in the 200s -Trop neg x3 -Orthostatics negative -Pending carotid doppler and ECHO when covid test results -Pending Cardiology consult when covid results -Therapeutic lovenox TIA -Head CT negative -Dopplers as above -MRI when covid is negative -Neurology consulted -Will consult stroke team if pt has had ischemic event DM2 -Continue home lantus 43u and home Januvia -Mild SSI and diabetic protocol per orders CAD Hx of SSS s/p pacemaker -Pending cardiology consult HTN -s/p permissive HTN, will continue home medications after rounds Hx of HLD -Now on atorvastatin CKD 2 -Remains stable OVIDIO -CPAP ordered Addendum - Attending - Attending Attestation Date/Time: 09/20/19 1321 I personally evaluated the patient and discussed the management with Dr. Lindo. I agree with the History, Examination, Assessment and Plan documented above with any addition or exceptions noted below. COVID pending. then cards consult for pacemarker adjustment. no tele events.
[2019-09-20] MEDS: Famotidine 20 MG TAB PO SCH ×2 (08:45→21:24)
[2019-09-20] MEDS: Alogliptin 6.25 MG TAB PO SCH (08:45)
[2019-09-20] MEDS: Aspirin 81 mg Enteric Coated Tablet PO SCH (08:45)
[2019-09-20] MEDS: Enoxaparin Sodium 120 MG/0.8 ML SYRINGE SC SCH ×2 (08:46→21:24)
[2019-09-20] MEDS ORDERED: Amlodipine 5 MG TAB PO SCH (09:00)
[2019-09-20] MEDS: Insulin Glargine 43 UNITS in Pre-Filled Syringe 1 EACH SC SCH ×2 (09:09→21:24)
[2019-09-20] MEDS: HumaLOG 300 UNITS/3 ML VIAL SC PRN ×2 (12:30→17:33)
[2019-09-20] MEDS: Atorvastatin Calcium 40 MG TAB PO SCH (21:24)
[2019-09-21] MEDS: HumaLOG 300 UNITS/3 ML VIAL SC PRN ×2 (05:42→11:26)
--- NOTE | 2019-09-21 07:01 | PDOC.FM ---
- Subjective Subjective: Pt reports he is doing well. He denies cp, SOB, palpitations, fever, chills, or presycopal episodes. - Objective MAR Reviewed: Yes Vital Signs & Weight: Vital Signs (12 hours) Temp Pulse Resp BP Pulse Ox 09/21/19 04:00 96.2 F L 79 20 179/82 H 96 09/21/19 00:00 97.0 F L 78 22 H 166/78 H 97 09/20/19 20:00 98.2 F 64 18 160/77 H 97 Weight Admit Weight 150.593 kg Weight 150.593 kg I&O: 09/20/19 09/21/19 09/22/19 06:59 06:59 06:59 Intake Total 1770.25 1000 Balance 1770.25 1000 Result Diagrams: 09/20/19 04:52 09/20/19 04:52 Phys Exam - Physical Examination Constitutional: NAD HEENT: moist MMs Neck: no JVD Respiratory: no wheezing, clear to auscultation bilateral Cardiovascular: RRR, no significant murmur Gastrointestinal: soft, non-tender, no distention Musculoskeletal: no edema, pulses present Neurological: moves all 4 limbs Psychiatric: A&O x 3 Skin: cap refill <2 seconds Dx/Plan (1) Atrial dysrhythmia Code(s): I49.8 - OTHER SPECIFIED CARDIAC ARRHYTHMIAS Status: Acute (2) Syncope Code(s): R55 - SYNCOPE AND COLLAPSE Status: Acute (3) TIA (transient ischemic attack) Code(s): G45.9 - TRANSIENT CEREBRAL ISCHEMIC ATTACK, UNSPECIFIED Status: Acute (4) CKD (chronic kidney disease) stage 2, GFR 60-89 ml/min Code(s): N18.2 - CHRONIC KIDNEY DISEASE, STAGE 2 (MILD) Status: Acute (5) Community acquired pneumonia Code(s): J18.9 - PNEUMONIA, UNSPECIFIED ORGANISM Status: Acute (6) Coronary artery disease with history of myocardial infarction without history of CABG Code(s): I25.10 - ATHSCL HEART DISEASE OF [place] CORONARY ARTERY W/O ANG PCTRS; I25.2 - OLD MYOCARDIAL INFARCTION Status: Acute (7) Morbid obesity Code(s): E66.01 - MORBID (SEVERE) OBESITY DUE TO EXCESS CALORIES Status: Acute - Plan Plan: This is a 49 yo male with a pmh of HTN, [place], DM2, HFrEF, PE, SSS w/ pacemaker, CKD2 Syncope likely 2/2 atrial dysrhythmia -Pacemaker shows 4 hours of atrial tachycardia the day he came in w/ VHR in the 200s -Trop neg x3 -Orthostatics negative -Pending carotid doppler and ECHO when covid test results -Pending Cardiology consult when covid results -Therapeutic lovenox TIA -Head CT negative -Dopplers as above -MRI when covid is negative -Neurology consulted -Will consult stroke team if pt has had ischemic event DM2 -Continue home lantus 43u and home Januvia -Mild SSI and diabetic protocol per orders CAD Hx of SSS s/p pacemaker -Pending cardiology consult HTN -s/p permissive HTN, will continue home medications after rounds Hx of HLD -Now on atorvastatin CKD 2 -Remains stable OVIDIO -CPAP ordered Addendum - Attending - Attending Attestation Date/Time: 09/21/19 4412 I personally evaluated the patient and discussed the management with Dr. Lindo. I agree with the History, Examination, Assessment and Plan documented above with any addition or exceptions noted below. COVID pending so he can have cardiology evaluate for abnormal rhythm seen by pacemaker. No syncopal episodes since admission. dispo pending result of COVID swab.
[2019-09-21] MEDS: Insulin Glargine 43 UNITS in Pre-Filled Syringe 1 EACH SC SCH ×3 (07:41→22:07)
[2019-09-21] MEDS: Alogliptin 6.25 MG TAB PO SCH (08:35)
[2019-09-21] MEDS: Famotidine 20 MG TAB PO SCH ×2 (08:35→21:37)
[2019-09-21] MEDS: Amlodipine 10 MG TAB PO SCH (08:35)
[2019-09-21] MEDS: Enoxaparin Sodium 120 MG/0.8 ML SYRINGE SC SCH ×2 (08:35→21:37)
[2019-09-21] MEDS: Aspirin 81 mg Enteric Coated Tablet PO SCH (08:35)
[2019-09-21] MEDS: Carvedilol 6.25 MG TAB PO SCH ×2 (08:36→21:37)
[2019-09-21] MEDS: Atorvastatin Calcium 40 MG TAB PO SCH (21:37)
[2019-09-22 05:13] LABS: Hemoglobin 13.4 g/dL (14.0-18.0); Platelet Count 223 thou/uL (130-400)
[2019-09-22] MEDS: HumaLOG 300 UNITS/3 ML VIAL SC PRN ×2 (05:29→18:17)
--- NOTE | 2019-09-22 06:16 | PDOC.FM ---
- Subjective Subjective: Doing well today. No further syncopal episodes. Tele strip review shows no further tachycardia episodes since admission. - Objective Vital Signs & Weight: Vital Signs (12 hours) Temp Pulse Resp BP Pulse Ox 09/22/19 05:28 97.1 F L 67 20 176/98 H 95 09/22/19 00:13 97.3 F L 72 18 152/90 H 96 09/21/19 21:30 96.9 F L 65 20 156/82 H 95 Weight Admit Weight 150.593 kg Weight 150.593 kg I&O: 09/20/19 09/21/19 09/22/19 06:59 06:59 06:59 Intake Total 1770.25 1000 1979 Balance 1770.25 1000 1979 Result Diagrams: 09/22/19 04:44 09/22/19 04:44 Dx/Plan (1) Atrial dysrhythmia Code(s): I49.8 - OTHER SPECIFIED CARDIAC ARRHYTHMIAS Status: Acute (2) Syncope Code(s): R55 - SYNCOPE AND COLLAPSE Status: Acute (3) CKD (chronic kidney disease) stage 2, GFR 60-89 ml/min Code(s): N18.2 - CHRONIC KIDNEY DISEASE, STAGE 2 (MILD) Status: Acute (4) Coronary artery disease with history of myocardial infarction without history of CABG Code(s): I25.10 - ATHSCL HEART DISEASE OF [place] CORONARY ARTERY W/O ANG PCTRS; I25.2 - OLD MYOCARDIAL INFARCTION Status: Acute (5) Morbid obesity Code(s): E66.01 - MORBID (SEVERE) OBESITY DUE TO EXCESS CALORIES Status: Acute (6) Sick sinus syndrome Code(s): I49.5 - SICK SINUS SYNDROME Status: Acute (7) HLD (hyperlipidemia) Code(s): E78.5 - HYPERLIPIDEMIA, UNSPECIFIED Status: Chronic Qualifiers: Hyperlipidemia type: unspecified Qualified Code(s): E78.5 - Hyperlipidemia , unspecified (8) Hypertension Code(s): I10 - ESSENTIAL (PRIMARY) HYPERTENSION Status: Chronic Qualifiers: Hypertension type: essential hypertension Qualified Code(s): I10 - Essential (primary) hypertension (9) OVIDIO (obstructive sleep apnea) Code(s): G47.33 - OBSTRUCTIVE SLEEP APNEA (ADULT) (PEDIATRIC) Status: Chronic (10) T2DM (type 2 diabetes mellitus) Status: Chronic Qualifiers: Diabetes mellitus group home insulin use: without group home use Diabetes mellitus complication status: without complication Qualified Code(s): E11.9 - Type 2 diabetes mellitus without complications - Plan Plan: This is a 49 yo male with a pmh of HTN, [place], DM2, HFrEF, PE, SSS w/ pacemaker, CKD2 #Syncope likely 2/2 atrial dysrhythmia -Pacemaker shows 4 hours of atrial tachycardia day of 09/18/19 with max ventricular rate 213 upon interrogation. Will consult cardiology. -Trop neg x3 -Orthostatics negative -Pending carotid doppler and ECHO -Therapeutic lovenox #Suspected TIA -Head CT negative -Dopplers as above -Low suspicion for neurologic event. Normal neuro exam this AM. #IDDM2 -Not at goal -Continue home lantus 43u and home Januvia and faxiga -Pt refusing metformin -Mild SSI and diabetic protocol per orders #CAD #Hx of SSS s/p pacemaker -Pending cardiology consult #HTN -at goal -continue home amlodipine #Hx of HLD -Now on atorvastatin #CKD 2 -Remains stable #OVIDIO -CPAP ordered dvt ppx: ppx lovenox Discussed with Dr. Soto Addendum - Attending - Attending Attestation Date/Time: 09/22/19 1224 I personally evaluated the patient and discussed the management with Dr. Fregoso. I agree with the History, Examination, Assessment and Plan documented above with any addition or exceptions noted below. Patient doing well. COVID negative. Consult cardiology due to his very abnormal pacemaker interrogation. Likely needs increased beta blockade but may need other therapeutics. No focals deficits, do not feel MRI is needed at this time. Echo pending.
[2019-09-22] MEDS: Insulin Glargine 43 UNITS in Pre-Filled Syringe 1 EACH SC SCH (08:38)
[2019-09-22] MEDS: Carvedilol 6.25 MG TAB PO SCH ×2 (08:39→21:53)
[2019-09-22] MEDS: Aspirin 81 mg Enteric Coated Tablet PO SCH (08:39)
[2019-09-22] MEDS: Alogliptin 25 MG TAB PO SCH (08:39)
[2019-09-22] MEDS: Amlodipine 10 MG TAB PO SCH (08:40)
[2019-09-22] MEDS: Enoxaparin Sodium 120 MG/0.8 ML SYRINGE SC SCH ×2 (08:40→21:53)
[2019-09-22] MEDS: Famotidine 20 MG TAB PO SCH ×2 (08:40→21:52)
--- NOTE | 2019-09-22 12:33 | CON ---
DATE OF CONSULTATION: 09/18/2019 REASON FOR CONSULTATION: Syncope/transient ischemic attack. HISTORY OF PRESENT ILLNESS: Mr. Phelps is a 49-year-old male with extensive cardiac history, diabetes mellitus, obstructive sleep apnea, admitted on 09/17 with a syncopal episode. He had these blacking out episodes. He was in a shower and all of a sudden, he had weakness and paresthesias on the left side of the body and before he passes out, there is a concern about TIA, Neurology is consulted for further evaluation. The patient denies any nausea, vomiting, dizziness, drowsiness, but does have some head headache. He denies any problems with swallowing or vision changes. He was diagnosed with sinus bradycardia in 2013 and has pacemaker. Pacemaker was interrogated in the emergency room. PAST MEDICAL HISTORY: Coronary artery disease with myocardial infarction and congestive heart failure, hyperlipidemia, obstructive sleep apnea, sick sinus syndrome, status post pacemaker, diabetes mellitus type 2. PAST SURGICAL HISTORY: Status post pacemaker placement. FAMILY HISTORY: Hypertension, diabetes. SOCIAL HISTORY: The patient denies smoking, alcohol, illegal drug use. REVIEW OF SYSTEM: CONSTITUTIONAL: Awake, alert, well-developed. HEENT: Grossly normal vision. Grossly normal hearing. NECK: Supple. CHEST: Clear. HEART: Regular rate and rhythm. LUNGS: No respiratory distress. - Allergies/Adverse Reactions Allergies Allergy/AdvReac Type Severity Reaction Status Date / Time lisinopril Allergy Swollen Verified 09/19/19 01:54 Lips - Home Medications Metformin 500 mg once daily Farxiga 5 mg daily Januvia 25 mg oral Lantus 43u BID Humulin sliding scale ASA 325 mg Carvedilol 12.5 mg Amlodipine 10 mg - History PMHx: CAD w/ [place], combined CHF (last echo 11/2017 showed EF 20-25% w/ diastolic dysfunction), HLD, OVIDIO, SSS s/p pacemaker, DMII PSHx: Pacemaker placement FHx: HTN, DM, Reports Mom passed of some sort of cancer Social: Pt denied any hx or current smoking, denied any alcohol use, denied any illicit drug use Pt Full Code - Review of Systems General: denies: fever/chills, weight/appetite/sleep changes, night sweats Eyes: denies: vision changes ENT: denies: nasal congestion Respiratory: denies: cough, congestion, shortness of breath, exercise intolerance Cardiovascular: reports: palpitation. denies: chest pain, edema Gastrointestinal: reports: vomiting (reports vomiting 3x today before blackout episode). denies: nausea, diarrhea Genitourinary: denies: incontinence, dysuria Skin: denies: rashes, lesions Musculoskeletal: denies: pain, stiffness, swelling Neurological: reports: numbness (reports numbness on left side prior to black out episode for a few hours), syncope (Has had a few episodes of second long blackouts.). denies: seizure, weakness Psychological: denies: anxiety, depression Objective Vital Signs & Weight: Vital Signs (12 hours) Temp Pulse Resp BP Pulse Ox 09/22/19 05:28 97.1 F L 67 20 176/98 H 95 09/22/19 00:13 97.3 F L 72 18 152/90 H 96 09/21/19 21:30 96.9 F L 65 20 156/82 H 95 Weight Admit Weight 150.593 kg Weight 150.593 kg I&O: 09/20/19 09/21/19 09/22/19 06:59 06:59 06:59 Intake Total 1770.25 1000 1979 Balance 1770.25 1000 1979 Medication Instructions Recorded Confirmed Type Carvedilol [Coreg] 6.25 mg PO BID-WM 06/23/18 06/23/18 History Blood-Glucose Meter [Blood Glucose 1 each ASDIR #1 each 06/26/18 Rx Meter] NPH, Human Insulin Isophane 20 unit SC BID #1 vial 06/26/18 Rx [HumuLIN N] Syrge-Ndl,Ins 0.3 ml Half Dick 1 each ASDIR #100 disp.syrin 06/26/18 Rx [Insulin Syringe] glipiZIDE [Glucotrol] 5 mg PO BID-AC #60 tab 06/26/18 Rx - Physical Exam Constitutional: NAD, awake, alert and oriented, well developed HEENT: conjunctiva clear, grossly normal vision, grossly normal hearing, MMM Neck: supple, FROM, trachea midline, no JVD, no thyromegaly Chest: no-tender to palpation, no lesions -Heart: RRR Abdomen: soft Musculoskeletal: normal structure, normal tone, ROM grossly normal NEUROLOGICAL EXAMINATION: Mental status: The patient is alert and oriented to person, place, and time. Speech clear. Follows commands appropriately. Cranial nerves: Cranial nerves 2 through 12 intact. Motor: Muscle tone and bulk are normal. Strength: 5/5 bilaterally. Reflexes: Symmetric bilaterally. Cerebellar: Intact. Sensory: Intact. Gait: Not tested due to the patient's safety reason. DIAGNOSTIC DATA: Labs reviewed, which were unremarkable. EKG showed paced rhythm. No ST elevation. CT of the head reviewed, which was unremarkable. CT of the neck was also unremarkable. ASSESSMENT AND PLAN: 1. A 49-year-old, consulted for left-sided numbness and weakness prior to the syncopal episode. Carotid Dopplers completed, results pending. Consider an MRI of the brain, if a pacemaker is compatible. 2. Strict control of the blood pressure and blood glucose. Aspirin and statin for secondary stroke prevention. PT/OT/Speech and DVT prophylaxis. Continue medical management per primary team. We will continue to follow. Thank you for the consult. Job ID: [id number] MTDD
--- NOTE | 2019-09-22 12:55 | ULT ---
CAROTID DOPPLER: DATE: 09/22/2019. PROVIDED CLINICAL HISTORY: Syncope. FINDINGS: Wilde scale and color Doppler sonography with spectral analysis was performed of the extracranial tilley tid system bilaterally. There is no evidence for a hemodynamically significant internal carotid sixto ry stenosis by peak systolic velocity or ratio criteria. Antegrade flow is seen within the vertebral arteries. IMPRESSION: No sonographic evidence for a hemodynamically significant internal carotid artery stenosis. POS: HELDER
[2019-09-22] MEDS: Dronedarone HCl 400 MG TAB PO SCH (18:17)
--- NOTE | 2019-09-22 18:50 | CON ---
DATE OF CONSULTATION: HISTORY OF PRESENT ILLNESS: This is a 49-year-old gentleman, who presented after losing consciousness. The patient was seen initially in March of 2014 with chest pain. At that time, he had atrial fibrillation and underwent a cardiac evaluation including a catheterization. He was found to have normal left ventricular systolic function with normal coronary arteries. The patient subsequently underwent placement of an electronic ventricular pacemaker. The patient was for a while was on Coumadin. He also has suffered subsequently a pulmonary embolus. The patient was in his usual state of health in the past. When recently started having several episodes, where he lost consciousness. He states that he had one was when he was standing, the other two were sitting. The patient did not lose control of his bladder or bowels. The patient did report having palpitations. He denied having any chest discomfort. PAST MEDICAL HISTORY: 1. Pulmonary embolus. 2. Sick sinus rhythm. 3. Atrial fibrillation. 4. Hypertension. 5. Obesity. 6. Diabetes mellitus. PAST SURGICAL HISTORY: None. SOCIAL HISTORY: Nonsmoker. FAMILY HISTORY: Positive family history of heart disease. ALLERGIES: LISINOPRIL. MEDICATIONS: See nursing list. REVIEW OF SYSTEMS: Ten-point system otherwise unremarkable. No history of easy bruising or bleeding, bright red blood per rectum. PHYSICAL EXAMINATION: GENERAL: Morbidly obese gentleman, in no acute distress. VITAL SIGNS: Blood pressure is 139/94. NECK: No jugular venous distention. LUNGS: Clear to auscultation. HEART: Regular rate and rhythm. Normal S1 and S2. ABDOMEN: Distended. EXTREMITIES: Showed no edema. VASCULAR: Radial pulses 2+. LABORATORY DATA: Sodium was sodium was 137, potassium 4.2, chloride 103, bicarbonate 25, BUN 13, creatinine 1.18, and glucose 238. His white blood cell count was 10.0, hemoglobin 12.9, hematocrit 41.2. IMAGING DATA: EKG revealed an electronic ventricular pacemaker. Echocardiogram revealed normal left ventricular ejection fraction of 50% to 55%. IMPRESSION: 1. Syncope. 2. History of atrial fibrillation. 3. Pulmonary embolus. 4. Hypertension. 5. Diabetes mellitus. 6. Dyslipidemia. 7. Morbid obesity. PLAN: This gentleman had several syncopal episodes. Interrogation of his pacemaker reveals probable atrial fibrillation. From a cardiac standpoint, it is unclear of the etiology. We would recommend checking orthostatic blood pressures. We will ask for EP evaluation. We will follow this patient with you through his hospitalization. Job ID: [id number] MTDD
--- NOTE | 2019-09-22 19:23 | CON ---
DATE OF CONSULTATION: 09/22/2019 This is Beryl Mortensen NP dictating a report for Edilberto Lobato MD. This consultation was performed by Dr. Edilberto Lobato. REFERRING PHYSICIAN: Slick Flores MD REASON FOR CONSULTATION: Recurrent syncope and collapse, atrial arrhythmia management. HISTORY OF PRESENT ILLNESS: Mr. Phelps is a 49-year-old male, who comes in with recurrent syncope and collapse. He has a past medical history significant for type 2 diabetes, sleep apnea, sick sinus syndrome with subsequent dual-chamber pacemaker implant, atrial fibrillation, pulmonary embolism, and hypertension. He had his syncopal episodes at half-way. He has had multiple episodes where he reports completely passing out for a few seconds. One was in the shower and he woke up on the floor. He also endorses associated left-sided numbness a few hours prior to one of the syncopal episodes. With another episode, he had thrown up 3 times prior to syncope and another episode occurred while eating, sitting at the table. Currently, he reports a headache. Currently, he does not have any significant symptoms. He denies any chest pain, pressure, stroke, or stroke-like symptoms. As mentioned, does endorse recent syncope and palpitations. REVIEW OF SYSTEMS: Twelve-point review of systems is conducted and is negative except that listed above in the HPI. PAST MEDICAL HISTORY: Type 2 diabetes, sleep apnea, atrial fibrillation, sick sinus syndrome, dual-chamber [employer] pacemaker, hypertension, and pulmonary embolism. ALLERGIES: LISINOPRIL. HOME MEDICATIONS: Include; 1. Lantus as directed. 2. Humulin R as directed. 3. Januvia 25 mg daily. 4. Farxiga 5 mg daily. 5. Glucophage 5 mg q.a.m. 6. Norvasc 10 mg daily. 7. Carvedilol 12.5 mg b.i.d. 8. Aspirin 325 mg daily. 9. D50 p.r.n. 10. Lipitor 80 mg at bedtime. FAMILY HISTORY: Noncontributory. The patient has poor recollection in family history events. SOCIAL HISTORY: Currently in half-way. Denies alcohol, tobacco, or illicit drug use currently. PHYSICAL EXAMINATION: VITAL SIGNS: Temperature 98.1, pulse 72, blood pressure 142/72, respirations 14, and oxygen 98% on room air. GENERAL: The patient is alert and oriented. Speech is clear. Affect is appropriate. He is in no apparent distress. At the time of the exam, resting comfortably in bed. NECK: His neck is supple without jugular venous distention. There is no lymphadenopathy. Trachea is midline. LUNGS: Clear to auscultation bilaterally without wheezes, crackles, or rhonchi. cardiac: Heart rate is irregularly irregular with a crisp S1 and S2. Left precordial device palpable site is without reaction. ABDOMEN: Soft and nontender without palpable masses. EXTREMITIES: Warm and dry to touch. Well perfused without clubbing, cyanosis, or edema. NEUROLOGIC: Grossly intact. Nonfocal. Gait is not assessed. DATABASE: EKG today shows sinus rhythm with demand atrial and ventricular pacing. Echocardiogram on 09/22/2019, EF 50% to 55%. Normal size left atrium. Carotid Doppler study on 09/22/2019, no significant carotid artery stenosis. LABORATORY DATA: Hematology was unremarkable. Chemistry: Creatinine 1.24. Troponins were negative. BNP 10. TSH 0.53. ASSESSMENT: 1. Recurrent syncope and collapse, possibly arrhythmia related versus transient ischemic attack. 2. Paroxysmal atrial fibrillation/atrial flutter with rapid ventricular response. 3. History of sick sinus syndrome with subsequent dual-chamber pacemaker in 2013 with adequate function. 4. Currently incarcerated in half-way. 5. Normal left ventricular ejection fraction by echocardiogram this office visit. 6. CHADS-VASc score of greater than or equal to 2 on the basis of hypertension and diabetes, currently on weight-based Lovenox dosing for cerebrovascular accident prophylaxis. PLAN AND RECOMMENDATIONS: Mr. Phelps is a 49-year-old gentleman, whom we see has paroxysmal episodes of atrial fibrillation and atrial flutter. By chart review, this has been an ongoing issues before 2016. His pacemaker is a dual-chamber system. His wires show stable function with study thresholds and impedance values. There is mode switch about 10% of the time and so I suspect there may be some atrial lead undersensing of his arrhythmias. He also has fairly high level of RV pacing currently at 62%. Also, the arrhythmia log from his atrial arrhythmia episodes show he occasionally was quite fast with ventricular rates exceeding 200 beats per minute. This could certainly be contributing to his syncopal episodes. I am starting Multaq for arrhythmia suppression at a dose of 400 mg p.o. b.i.d. His CHADS-VASc score is at least 2 and oral anticoagulation is indicated. He is currently on Lovenox. I would recommend oral anticoagulation with Xarelto or Eliquis. At the time of discharge, this is cleared by Neurology. There was some conversation about additional imaging, although an MRI will not be able to be completed as his device is not MRI compatible. Thank you for allowing me to participate in the care of this patient. We will continue to follow. Job ID: [id number]
[2019-09-22] MEDS ORDERED: Insulin Glargine 46 UNITS in Pre-Filled Syringe 1 EACH SC SCH (21:00)
[2019-09-22] MEDS ORDERED: Insulin Glargine 43 UNITS in Pre-Filled Syringe 1 EACH SC SCH (21:00)
[2019-09-22] MEDS: Atorvastatin Calcium 40 MG TAB PO SCH (21:53)
--- NOTE | 2019-09-23 07:24 | PDOC.FM ---
- Subjective Subjective: Pt is doing well today. He stopped taking warfarin in 2014 due to unknown reasons. He denies syncope since admission and is at his baseline. - Objective Vital Signs & Weight: Vital Signs (12 hours) Temp Pulse Resp BP BP Pulse Ox 09/23/19 03:10 98.6 F 80 16 140/72 97 09/22/19 23:35 98.1 F 73 19 119/78 95 09/22/19 21:53 139/90 09/22/19 19:40 98.4 F 81 18 141/92 H 98 Weight Admit Weight 150.593 kg Weight 150.593 kg I&O: 09/22/19 09/23/19 09/24/19 06:59 06:59 06:59 Intake Total 2079 285 400 Balance 2079 285 400 Result Diagrams: 09/22/19 04:44 09/22/19 04:44 EKG Reviewed by me: Yes (Tele: SR, atrial paced) Phys Exam - Physical Examination Constitutional: NAD HEENT: PERRLA, moist MMs Neck: no JVD, full ROM Respiratory: no wheezing, clear to auscultation bilateral Cardiovascular: RRR, no significant murmur Gastrointestinal: soft, positive bowel sounds Musculoskeletal: no edema, pulses present Neurological: non-focal, moves all 4 limbs Psychiatric: normal affect, A&O x 3 Skin: no rash, cap refill <2 seconds Dx/Plan (1) Atrial dysrhythmia Code(s): I49.8 - OTHER SPECIFIED CARDIAC ARRHYTHMIAS Status: Acute (2) Syncope Code(s): R55 - SYNCOPE AND COLLAPSE Status: Acute (3) Coronary artery disease with history of myocardial infarction without history of CABG Code(s): I25.10 - ATHSCL HEART DISEASE OF [place] CORONARY ARTERY W/O ANG PCTRS; I25.2 - OLD MYOCARDIAL INFARCTION Status: Acute (4) Sick sinus syndrome Code(s): I49.5 - SICK SINUS SYNDROME Status: Acute (5) HLD (hyperlipidemia) Code(s): E78.5 - HYPERLIPIDEMIA, UNSPECIFIED Status: Chronic Qualifiers: Hyperlipidemia type: unspecified Qualified Code(s): E78.5 - Hyperlipidemia , unspecified (6) Hypertension Code(s): I10 - ESSENTIAL (PRIMARY) HYPERTENSION Status: Chronic Qualifiers: Hypertension type: essential hypertension Qualified Code(s): I10 - Essential (primary) hypertension (7) OVIDIO (obstructive sleep apnea) Code(s): G47.33 - OBSTRUCTIVE SLEEP APNEA (ADULT) (PEDIATRIC) Status: Chronic (8) T2DM (type 2 diabetes mellitus) Status: Chronic Qualifiers: Diabetes mellitus shelter insulin use: without tank terminal gauger use Diabetes mellitus complication status: without complication Qualified Code(s): E11.9 - Type 2 diabetes mellitus without complications - Plan Plan: This is a 49 yo male with a pmh of HTN, MO, DM2, HFrEF, PE, SSS w/ pacemaker, CKD2 #Syncope likely 2/2 atrial dysrhythmia -Pacemaker shows 4 hours of atrial tachycardia day of 09/18/19 with max ventricular rate 213 upon interrogation. -Trop neg x3 -Orthostatics negative -cardiology and EP consulted, appreciate recommendations; Multaq initiated, will discuss possible discharge today with EP #Suspected TIA -Head CT negative -Dopplers negative -Low suspicion for neurologic event. Pt on maximum medical therapy, unable to perform MRI with pacemaker #IDDM2 -Not at goal -Continue home lantus 43u and home Januvia and faxiga -Pt refusing metformin -Mild SSI and diabetic protocol per orders #CAD #Hx of SSS s/p pacemaker -as above # Hx of Paroxysmal A-fib - pt not currently anti-coagulated but would like to be. Discussed risks vs benefits of anticoagulation. Will call [facility] medical office to discuss which medications are covered. #HTN -at goal -continue home amlodipine #Hx of HLD -Now on atorvastatin #CKD 2 -Remains stable #OVIDIO -CPAP ordered dvt ppx: ppx lovenox Addendum - Attending - Attending Attestation Date/Time: 09/23/19 [id number] I personally evaluated the patient and discussed the management with Dr. Chu. I agree with the History, Examination, Assessment and Plan documented above with any addition or exceptions noted below. Patient stable for discharge.
[2019-09-23] MEDS: Enoxaparin Sodium 120 MG/0.8 ML SYRINGE SC SCH (08:22)
[2019-09-23] MEDS: Famotidine 20 MG TAB PO SCH (08:23)
[2019-09-23] MEDS: Dronedarone HCl 400 MG TAB PO SCH (08:23)
[2019-09-23] MEDS: Carvedilol 6.25 MG TAB PO SCH (08:23)
[2019-09-23] MEDS: Amlodipine 10 MG TAB PO SCH (08:23)
[2019-09-23] MEDS: Insulin Glargine 43 UNITS in Pre-Filled Syringe 1 EACH SC SCH (08:23)
[2019-09-23] MEDS: Aspirin 81 mg Enteric Coated Tablet PO SCH (08:23)
[2019-09-23] MEDS ORDERED: Empagliflozin 10 MG TAB PO SCH (09:00)
--- NOTE | 2019-09-23 10:38 | PDOC.HOSPP ---
- Subjective Encounter Date: 09/23/19 Subjective: Patient is alert and awake. Follows commands appropriately. - Objective Vital Signs & Weight: Vital Signs (12 hours) Temp Pulse Resp BP BP Pulse Ox 09/23/19 08:23 80 09/23/19 08:20 98.6 F 62 16 152/87 H 152/87 H 09/23/19 03:10 98.6 F 80 16 140/72 97 09/22/19 23:35 98.1 F 73 19 119/78 95 Weight Admit Weight 332 lb Weight 332 lb I&O: 09/22/19 09/23/19 09/24/19 06:59 06:59 06:59 Intake Total 0 285 880 Balance 0 285 880 Result Diagrams: 09/22/19 04:44 09/22/19 04:44 Additional Labs: Accuchecks 09/23/19 09/22/19 09/22/19 06:19 21:07 16:37 POC Glucose 174 H 152 H 231 H 09/22/19 11:15 POC Glucose 196 H Radiology Reviewed by me: Yes EKG Reviewed by me: Yes Hospitalist ROS - Review of Systems Constitutional: denies: fever, chills, sweats, weakness, malaise, other Eyes: denies: pain, vision change, conjunctivae inflammation, eyelid inflammation, redness, other ENT: denies: ear pain, ear discharge, nose pain, nose discharge, nose congestion , mouth pain, mouth swelling, throat pain, throat swelling, other Respiratory: denies: cough, dry, shortness of breath, hemoptysis, SOB with excertion, pleuritic pain, sputum, wheezing, other Cardiovascular: reports: palpitations Gastrointestinal: denies: nausea, vomiting, abdominal pain, diarrhea, constipation, melena, hematochezia, other Genitourinary: denies: dysuria, frequency, incontinence, hematuria, retention, other Musculoskeletal: denies: neck pain, shoulder pain, arm pain, back pain, hand pain, leg pain, foot pain, other Neurological: denies: weakness, numbness, incoordination, change in speech, confusion, seizures, other - Medication Medications: Active Medications Generic Name Dose Route Start Last Admin Trade Name Freq PRN Reason Stop Dose Admin Amlodipine Besylate 10 mg 09/21/19 09:00 09/23/19 08:23 Norvasc PO 10 mg DAILY GAEL Administration Aspirin 81 mg 09/19/19 09:00 09/23/19 08:23 Ecotrin PO 81 mg DAILY GAEL Administration Atorvastatin Calcium 80 mg 09/19/19 21:00 09/22/19 21:53 Lipitor PO 80 mg HS GAEL Administration Carvedilol 12.5 mg 09/21/19 09:00 09/23/19 08:23 Coreg PO 12.5 mg BID GAEL Administration Dronedarone 400 mg 09/22/19 17:00 09/23/19 08:23 Multaq PO 400 mg BID-WM GAEL Administration Enoxaparin Sodium 120 mg 09/19/19 21:00 09/23/19 08:22 Lovenox SC 120 mg 0900,2100 GAEL Administration Famotidine 20 mg 09/19/19 09:00 09/23/19 08:23 Pepcid PO 20 mg BID GAEL Administration Insulin Glargine 43 units/ 0.43 mls @ 0 mls/hr 09/19/19 09:00 09/23/19 08:23 Miscellaneous Medication SC 0.43 mls QAM GAEL Administration Insulin Glargine 43 units/ 0.43 mls @ 0 mls/hr 09/22/19 21:00 09/22/19 21:54 Miscellaneous Medication SC Not Given HS GAEL As Directed Insulin Human Lispro 0 units 09/19/19 01:57 09/22/19 18:17 Humalog SC 3 unit .MILD SLIDING SCALE PRN Administration Mild Correctional Scale Insulin Human Lispro 0 units 09/19/19 01:57 09/20/19 21:35 Humalog SC 2 units .BEDTIME SLIDING SC PRN Administration Bedtime Correctional Scale - Exam General Appearance: awake alert Eye: PERRL, anicteric sclera ENT: normocephalic atraumatic, no oropharyngeal lesions, moist mucosa Neck: supple, symmetric, no JVD, no thyromegaly Heart: RRR, no murmur, no gallops, no rubs, normal peripheral pulses Respiratory: CTAB, no wheezes, no rales, no ronchi, normal chest expansion Gastrointestinal: soft, non-tender, non-distended, normal bowel sounds Extremities: no cyanosis, no clubbing, no edema Skin: normal turgor, no lesions, no rashes Neurological: cranial nerve grossly intact, normal sensation to touch, no weakness, no focal deficits, no new deficit Musculoskeletal: normal tone, normal strength, no muscle wasting Psychiatric: normal affect, normal behavior, A&O x 3 Hosp A/P (1) TIA (transient ischemic attack) Code(s): G45.9 - TRANSIENT CEREBRAL ISCHEMIC ATTACK, UNSPECIFIED Status: Acute Plan: MRI brain could not be done since pacemaker is not compatible. Head CT negative -Carotid Dopplers negative - Echocardiography- No thrombus or PFO. -Low suspicion for TIA, most likely cardiac event. Cardiology on board. -Already on ASA and stain for secondary stroke prevention. -Neurochecks every 4 hours. -Strict control of BP and BG. - Continue home medications. - Continue medical management per primary team and cardiology. -Plan discussed with the patient. - Plan old records reviewed/req, PT/OT, DVT proph w/SCDs
[2019-09-23 11:09] VITALS: BP 113/67; TEMP 98.1
--- NOTE | 2019-09-23 11:10 | PDOC.EP ---
- Subjective Date: 09/23/19 Time: 08:00 Interval History: follow up for device and arrhythmia management. Recent recurrent syncope and collapse. Mr Phelps feels well and is eager to discharge. He denies any cardiac complaints this AM. No Nausea - Review of Systems Constitutional: denies: chills, fever, malaise, sweats, weakness, other Respiratory: denies: cough, dry, hemoptysis, pleuritic pain, shortness of breath , SOB with excertion, sputum, wheezing, other Cardiology: denies: chest pain, edema, heart racing, light headedness, passing out - Objective Allergies/Adverse Reactions: Allergies Allergy/AdvReac Type Severity Reaction Status Date / Time lisinopril Allergy Swollen Verified 09/19/19 01:54 Lips Current Medications Acetaminophen (Tylenol) 650 mg WV Q4H PRN PRN Reason: Headache/Fever/Mild Pain (1-3) Acetaminophen (Tylenol) 650 mg PO Q4H PRN PRN Reason: Headache/Fever/Mild Pain (1-3) Alogliptin Benzoate (Alogliptin) 25 mg PO DAILY [facility] Amlodipine Besylate (Norvasc) 10 mg PO DAILY [facility] Last Admin: 09/23/19 08:23 Dose: 10 mg Aspirin (Ecotrin) 81 mg PO DAILY [facility] Last Admin: 09/23/19 08:23 Dose: 81 mg Atorvastatin Calcium (Lipitor) 80 mg PO HS [facility] Last Admin: 09/22/19 21:53 Dose: 80 mg Carvedilol (Coreg) 12.5 mg PO BID [facility] Last Admin: 09/23/19 08:23 Dose: 12.5 mg Dextrose/Water (Dextrose 50%) 25 gm SLOW IVP PRN PRN PRN Reason: Hypoglycemia Dronedarone (Multaq) 400 mg PO BID-[facility] Last Admin: 09/23/19 08:23 Dose: 400 mg Enoxaparin Sodium (Lovenox) 120 mg SC 0900,2100 [facility] Last Admin: 09/23/19 08:22 Dose: 120 mg Famotidine (Pepcid) 20 mg PO BID [facility] Last Admin: 09/23/19 08:23 Dose: 20 mg Glucagon (Glucagon) 1 mg IM PRN PRN PRN Reason: Hypoglycemia Hydralazine HCl (Apresoline) 10 mg SLOW IVP Q4H PRN PRN Reason: BP > 220/110 Insulin Glargine 43 units/ (Miscellaneous Medication) 0.43 mls @ 0 mls/hr SC QAM [facility] Last Admin: 09/23/19 08:23 Dose: 0.43 mls Dextrose/Water (D5w) 1,000 mls @ 0 mls/hr IV .Q0M PRN PRN Reason: Hypoglycemia Insulin Glargine 43 units/ (Miscellaneous Medication) 0.43 mls @ 0 mls/hr SC HS [facility] Last Admin: 09/22/19 21:54 Dose: Not Given Insulin Human Lispro (Humalog) 0 units SC .MILD SLIDING SCALE PRN PRN Reason: Mild Correctional Scale Last Admin: 09/22/19 18:17 Dose: 3 unit Insulin Human Lispro (Humalog) 0 units SC .BEDTIME SLIDING SC PRN PRN Reason: Bedtime Correctional Scale Last Admin: 09/20/19 21:35 Dose: 2 units Labetalol HCl (Normodyne) 20 mg SLOW IVP Q1H PRN PRN Reason: BP > 220/110 Miscellaneous Medication (Jardiance) 10 mg PO DAILY [facility] Sodium Chloride (Flush - Normal Saline) 10 ml IVF PRN PRN PRN Reason: Saline Flush Vital Signs & Weight: Vital Signs Temp Pulse Resp BP BP Pulse Ox 09/23/19 08:23 80 09/23/19 08:20 98.6 F 62 16 152/87 H 152/87 H 09/23/19 03:10 98.6 F 80 16 140/72 97 09/22/19 23:35 98.1 F 73 19 119/78 95 Admit Weight 332 lb Weight 332 lb I/O: I/O 09/22/19 09/23/19 09/24/19 06:59 06:59 06:59 Intake Total 2080 285 880 Balance 2080 285 880 - Quality Measures Condition: Atrial Fibrillation/Flutter (hx or current) CV meds: Xarelto: Yes - Physical Exam General: alert & oriented x3, appears well, no apparent distress, speech clear, affect appropriate HEENT: mucus membranes moist, normocephaly Neck: supple neck, midline trachea, no JVD/HJR Cardiology: regular rate and rhythm, no murmur, PMI nondisplaced Lungs: clear to auscultation, no wheeze, rales, rhonchi Neurology: cranial nerve 2-12 intact, grossly intact, no lateralizing findings Abdomen: active bowel sounds, soft, no pulsations/bruits Skin: device site stable w/o swelling - Chadsvasc Risk factors Hypertension: 1 Diabetes mellitus: 1 Risk Score: 2 - Labs Result Diagrams: 09/22/19 04:44 09/22/19 04:44 - EKG Interpretation EKG Method: Telemetry EKG shows: Sinus rhythm - Device Device: dual Device Result: [email or web address] - Assessment/Plan Assessment/Plan: 1. Recurrent syncope and collapse -suspicious for vaso-vagal origin 2. Paroxysmal atrial fibrillation/atrial flutter with rapid ventricular response. 3. History of sick sinus syndrome with subsequent dual-chamber pacemaker in 2013 with adequate function. 4. [facility] 5. Normal left ventricular ejection fraction by echocardiogram this office visit. 6. CHADS-VASc score of greater than or equal to 2 on the basis of hypertension and diabetes, currently on weight-based Lovenox dosing for cerebrovascular accident prophylaxis. Started multaq 400mg PO BID for AF suppression. ~10% burden by PPM interrogation. Occasionally his ventricular rates exceeded 200bpm with prior documented episodes. He is tolerating multaq and rhythm is stable. Recommend OAC with Xarelto 20mg QPM or Eliquis 5mg BID if neuro is ok with this in light of the concern for a possible TIA/CVA. He is welcome to follow up with [facility] for rhythm management but this may not be possible while incarcerated. OK for DC.
[2019-09-23] MEDS: DAPAGLIFLOZIN PROPANEDIOL 5 MG PO SCH ×2 (11:50→11:51)
[2019-09-23] MEDS: Alogliptin 25 MG TAB PO SCH (11:51)
[2019-09-23] MEDS: HumaLOG 300 UNITS/3 ML VIAL SC PRN (11:52)
--- NOTE | 2019-09-24 06:52 | PQF ---
HOLLY AGRAWAL JASON MD *r* [id number] [facility] [id number] CLINICAL DOCUMENTATION CLARIFICATION FORM: POST DISCHARGE Addendum to original discharge summary date: ____ Late entry note date: __ DATE: 09/24/19 ATTN: Gerard Sanchez Please exercise your independent, professional judgment in responding to the clarification form. Clinical indicators are provided on the bottom of this form for your review Can you please further clarify the etiology of syncope? Please check appropriate box(s): Syncope Due to: [ ] Atrial fibrillation [ ] TIA [ ] Vasovagal attack [ X ] Atrial dysrhythmia [ ] Syncope due to unknown etiology [ ] Other diagnosis please specify [ ] Unable to determine In addition, please specify: Present on Admission (POA): [ X ] Yes [ ] No [ ] Unable to determine For continuity of documentation, please document condition throughout progress notes and discharge summary. Thank You. CLINICAL INDICATORS - SIGNS / SYMPTOMS / LABS Family H and P pg.1- Patient reports pass out for few minutes H and P pg.6- Syncope likely 2/2 atrial dysrhythmia H and P pg.6- TIA- pt reported left sided numbness prior to syncopal episode. Report dizziness Consult Dr. Valdivia 09/17- Syncope/ Transient ischemic attack Consult Dr. Mortensen 09/21pg.2- Recurrent syncope and collapse, possibly arrhythmia related versus transient ischemic attack Electrophysiology PN 09/22 pg.4- Recurrent syncope and collapse- suspicious for vaso-vagal origin Consult 09/21 pg.2- interrogation of his pacemaker reveals probable atrial fibrillation RISK FACTORS CAD- H and P pg.2 CHF- H and P pg.2 HLD- H and P pg.2 OVIDIO- H and P pg.2 DM II- H and P pg.2 Morbid obesity- H and P pg.5 HTN- H and P pg.[address] Brain 09/17 Echocardiogram 09/21 Cardiology consult 09/21 Dr. Flores Neurology Consult Dr. Valdivia IV fluids- MAR Vital signs monitoring (This form is maintained as a part of the permanent medical record) 2014 [employer]. All Rights Reserved [email or web address]
[2019-09-24] MEDS ORDERED: Alogliptin 25 MG TAB PO SCH ×2 (09:00)
--- NOTE | 2019-09-24 13:58 | DIS ---
DATE OF ADMISSION: 09/18/2019 DATE OF DISCHARGE: 09/23/2019 RESIDENT: Bubba Chu DO ADMITTING ATTENDING: Mandi Palomo MD DISCHARGE ATTENDING: Gerard Soto MD CONSULTS: 1. Cardiology, Slick Flores MD. 2. Electrophysiology, Edilberto Lobato MD. PROCEDURES PERFORMED: 1. Chest x-ray on 09/18/2019 revealed no evidence of acute cardiopulmonary disease. 2. Brain CT on 09/18/2019 revealed no evidence of acute intracranial abnormality. 3. Cervical spine CT on 09/18/2019 revealed no evidence of acute osseous abnormality of the cervical spine. 4. Carotid Doppler study on 09/22/2019 revealed no sonographic evidence for hemodynamically significant internal carotid artery stenosis. 5. Echocardiogram on 09/22/2019 revealed ejection fraction estimated at 50% to 55%. Left ventricular size normal. Pacer wire visualized in the right ventricle. Normal size left atrium. PRIMARY DIAGNOSES: 1. Atrial dysrhythmia. 2. Atrial tachycardia. 3. CAD 4. Sick sinus syndrome status post pacemaker. 5. History of paroxysmal atrial fibrillation. SECONDARY DIAGNOSES: 6. Type 2 diabetes. 7. Hypertension. 8. Hyperlipidemia. 9. Chronic kidney disease stage 2. 10. Obstructive sleep apnea. DISCHARGE MEDICATIONS: 1. Coreg 12.5 mg p.o. b.i.d. 2. Januvia 25 mg p.o. daily. 3. Farxiga 5 mg p.o. q.a.m. 4. Metformin 500 mg p.o. q.a.m. 5. Norvasc 10 mg p.o. daily. 6. Aspirin 325 mg p.o. daily. 7. Lantus 23 units subcu 0500. 8. Lantus 20 units subcu 2000. 9. Lipitor 80 mg p.o. at bedtime. 10. Multaq 400 mg p.o. b.i.d. 11. Xarelto 20 mg p.o. q.p.m. DISCONTINUED MEDICATIONS: None. HISTORY OF PRESENT ILLNESS/HOSPITAL COURSE: Klaus Phelps is a 49-year-old male, who presented with a syncopal episode while at [facility]. It was initially thought that the patient suffered from TIA versus stroke. His head CT and carotid Doppler studies were within normal limits. His cervical spine CT was also within normal limits. It was decided to perform interrogation of his pacemaker, which he has for sick sinus syndrome. This noted him to have atrial tachycardia. With the atrial tachycardia not controlled by his pacemaker, he is experiencing episodes of syncope. Cardiology and Electrophysiology were consulted for this and the patient was started on Multaq. This will help decrease his heart rate and the pacemaker should keep him above 60 beats per minute. Otherwise, electrophysiology team stated that he does not need any titration of the Multaq and can continue at 400 mg p.o. b.i.d. He also had an elevated CHADS-VASc score. Upon further questioning, he was unsure why he was not taking anticoagulation for his paroxysmal atrial fibrillation. Due to this, I discussed the risks and benefits of anticoagulation and the patient opted to restart medication. He did have an echocardiogram done, which did not reveal an appendage thrombus. The patient was started on Xarelto 20 mg p.o. q.p.m. This [facility] with [facility], who note that they would be able to pick this medication up for the patient. COVID test negative. DISPOSITION: Stable. DISCHARGE INSTRUCTIONS: 1. Location: [facility]. 2. Diet: Heart healthy. 3. Activity: Ad az. 4. Followup: Follow up with physician in [facility]. Job ID: [id number] [email or web address]
== END 2019-09-23 13:32 | DRG 309 ==
LOC: ERS 21:16 → EEVIPCON 23:54 → 2SW 23:54
PROVIDERS: ADMIT Family Medicine; ATTEND Family Medicine
DX: I49.8 Other specified cardiac arrhythmias (principal); G45.9 Transient cerebral ischemic attack, unspecified; I50.42 Chronic combined systolic (congestive) and diastolic (congestive) heart failure; I13.0 Hypertensive heart and chronic kidney disease with heart failure and stage 1 through stage 4 chronic kidney disease, or unspecified chronic kidney disease; Z68.41 Body mass index [BMI] 40.0-44.9, adult; R55 Syncope and collapse; I48.92 Unspecified atrial flutter; Z20.828 Contact with and (suspected) exposure to other viral communicable diseases; G47.33 Obstructive sleep apnea (adult) (pediatric); I25.10 Atherosclerotic heart disease of native coronary artery without angina pectoris; E78.5 Hyperlipidemia, unspecified; I49.5 Sick sinus syndrome; E66.01 Morbid (severe) obesity due to excess calories; N18.2 Chronic kidney disease, stage 2 (mild); E11.22 Type 2 diabetes mellitus with diabetic chronic kidney disease; I48.0 Paroxysmal atrial fibrillation; E78.00 Pure hypercholesterolemia, unspecified; Z79.4 Long term (current) use of insulin; Z86.711 Personal history of pulmonary embolism; I25.2 Old myocardial infarction; Z88.8 Allergy status to other drugs, medicaments and biological substances; Z79.82 Long term (current) use of aspirin; Z79.899 Other long term (current) drug therapy; Z95.1 Presence of aortocoronary bypass graft
CPT/HCPCS: 36415; 36416; 70450; 71045; 72125; 80053; 80061; 81003; 81015; 82550; 82565; 83880; 84443; 84484; 85014; 85018; 85025; 85049; 87635; 93005; 93306; 93880; 94760; J1650; J1815; U0002